=== PATIENT | female | born 1960 | race Caucasian/White ===

== ENCOUNTER 2022-06-05 12:09 | Outpatient (REF) | payer OTHER, SELFPAY ==
[2022-06-05 14:11] LABS: Syphilis Screen Nonreactive (Nonreactive)
[2022-06-08 14:01] LABS: Absolute CD3 Count 511 cells/uL (840-3060); Absolute CD4 Count 36 cells/uL (490-1740); Absolute CD8 Count 474 cells/uL (180-1170); Absolute Lymphocytes 601 cells/uL (850-3900); CD4 CD8 Ratio 0.08 (0.86-5.00); Percent CD3 Cells 85 % (57-85); Percent CD4 Cells 6 % (30-61); Percent CD8 Cells 79 % (12-42)
[2022-06-08 18:32] LABS: TS Negative Control Passed; TS Panel A 0; TS Panel B 1; TS Positive Control Passed; TSpotTB Negative (Negative)
[2022-06-09 20:03] LABS: HIV RNA PCR Qn Copies 1110000 copies/mL (NOT DETECTED); HIV RNA PCR Qn Log Copies 6.05 (NOT DETECTED)
[2022-06-15 19:07] LABS: HIV Genotype DETECTED
[2022-06-16 02:51] LABS: Date Viral Load Collected NG; Dolutegravir Resistance NOT PREDICTED; HIV-1 Bictegravir Resistance NOT PREDICTED; HIV-1 Cabotegravir Resistance NOT PREDICTED; HIV-1 Elvitegravir Resistance NOT PREDICTED; Raltegravir Resistance NOT PREDICTED; Value of Last HIV Viral Load NG copies/mL
== END 2022-06-05 12:10 | disposition home or self-care (01) ==
LOC: HO.LAB 12:09
PROVIDERS: PCP Internal Medicine; Visit Provider Internal Medicine
DX: B20 Human immunodeficiency virus [HIV] disease (principal)
CPT/HCPCS: 36415; 86359; 86360; 86481; 86780; 87536; 87900; 87901; 87906

== ENCOUNTER 2022-07-29 13:03 | Outpatient (REF) | payer OTHER, SELFPAY ==
[2022-07-29 13:55] LABS: MANUAL DIFF FLAG NO
[2022-07-29 14:46] LABS: Basophils Percent Auto 0.6 % (0-2); Eosinophils Absolute Auto 0.3 X10*3/uL (0.0-0.4); Eosinophils Percent Auto 8.6 % (0-4); Hematocrit 34.1 % (37.0-47.0); Hemoglobin 10.9 g/dl (12.0-16.0); Imm Gran Abs Auto 0.01 X10*3/uL (0.00-0.03); Imm Gran Pct Auto 0.3 % (0.0-0.4); Lymphocytes Absolute Auto 1.7 X10*3/uL (1.2-4.9); Lymphocytes Percent Auto 47.3 % (20-40); Mean Corpuscular Hemoglobin 30.2 pg (27.0-33.0); Mean Corpuscular Volume 94.5 fL (80.0-98.0); Mean Platelet Volume 10.9 fL (9.4-12.3); Monocytes Absolute Auto 0.4 X10*3/uL (0.1-1.2); Monocytes Percent Auto 10.3 % (2-11); Neutrophils Absolute Auto 1.2 x10*3/uL (2.0-8.3); Neutrophils Percent Auto 32.9 % (45-73); Platelet Count 133 X10*3/uL (160-400); Red Blood Count 3.61 X10*6/uL (4.20-5.50); White Blood Count 3.5 X10*3/uL (4.8-10.8)
[2022-07-29 15:18] LABS: Alanine Aminotransferase < 6 U/L (0-31); Albumin Level 3.5 g/dL (3.5-5.0); Alkaline Phosphatase 76 U/L (39-117); Anion Gap 11 (12-20); Aspartate Amino Transferase 16 U/L (5-31); Bilirubin Direct < 0.2 mg/dL (0.0-0.5); Bilirubin Total 0.2 mg/dL (0.0-1.0); Blood Urea Nitrogen 19 mg/dL (9-16); Calcium 8.7 mg/dL (8.4-10.2); Carbon Dioxide 28 mmol/L (22-29); Chloride 106 mmol/L (96-108); Estimated Glomerular Filt Rate > 60; Glucose Random 90 mg/dL (60-115); Potassium 3.8 mmol/L (3.3-5.1); Sodium 141 mmol/L (135-145); Total Protein 7.1 g/dL (6.5-8.0)
[2022-07-31 14:23] LABS: Absolute CD3 Count 1423 cells/uL (840-3060); Absolute CD4 Count 194 cells/uL (490-1740); Absolute CD8 Count 1234 cells/uL (180-1170); Absolute Lymphocytes 1649 cells/uL (850-3900); CD4 CD8 Ratio 0.16 (0.86-5.00); Percent CD3 Cells 86 % (57-85); Percent CD4 Cells 12 % (30-61); Percent CD8 Cells 75 % (12-42)
[2022-07-31 16:24] LABS: HIV RNA PCR Qn Copies 150 copies/mL (NOT DETECTED); HIV RNA PCR Qn Log Copies 2.18 (NOT DETECTED)
== END 2022-07-29 13:04 | disposition home or self-care (01) ==
LOC: HO.LAB 13:03
PROVIDERS: PCP Internal Medicine; Visit Provider Internal Medicine
DX: B20 Human immunodeficiency virus [HIV] disease (principal)
CPT/HCPCS: 36415; 80048; 80076; 85025; 86359; 86360; 87536

== ENCOUNTER 2022-08-12 10:17 | Outpatient (REF) | payer OTHER, SELFPAY ==
[2022-08-14 15:58] LABS: Absolute CD3 Count 1291 cells/uL (840-3060); Absolute CD4 Count 179 cells/uL (490-1740); Absolute CD8 Count 1117 cells/uL (180-1170); Absolute Lymphocytes 1479 cells/uL (850-3900); CD4 CD8 Ratio 0.16 (0.86-5.00); Percent CD3 Cells 87 % (57-85); Percent CD4 Cells 12 % (30-61); Percent CD8 Cells 76 % (12-42)
[2022-08-14 17:48] LABS: HIV RNA PCR Qn Copies 121 copies/mL (NOT DETECTED); HIV RNA PCR Qn Log Copies 2.08 (NOT DETECTED)
== END 2022-08-12 10:18 | disposition home or self-care (01) ==
LOC: HO.LAB 10:17
PROVIDERS: PCP Internal Medicine; Visit Provider Internal Medicine
DX: B20 Human immunodeficiency virus [HIV] disease (principal); R21 Rash and other nonspecific skin eruption
CPT/HCPCS: 36415; 86359; 86360; 87536

== ENCOUNTER 2023-01-21 09:47 | Outpatient (REF) | payer OTHER, SELFPAY | END 2023-01-21 09:48 | disposition home or self-care (01) | LOC: HO.LNP 09:47 | PROVIDERS: PCP Family Medicine; Visit Provider Obstetrics & Gynecology | DX: R87.612 Low grade squamous intraepithelial lesion on cytologic smear of cervix (LGSIL) (principal) | CPT/HCPCS: 57454; 88305; 88342; 88360 ==

== ENCOUNTER 2023-03-05 14:47 | Outpatient (REF) | payer OTHER, SELFPAY ==
--- NOTE | ~2023-03-05 | MM_ITS ---
EXAMINATION: BONE DENSITOMETRY CLINICAL INDICATION: Menopause. COMPARISON: This is the patient's baseline examination. TECHNIQUE: Using a [employer] DXA System (software version: 13.1) manufactured by [employer], dual-energy x-ray absorptiometry was performed of the lumbar spine and left hip. The images are of good technical quality. Summary results are attached. FINDINGS: LEFT FEMUR, NECK: BMD 0.742 g/cm2, Z-score -0.7, T-score -2.1, osteopenia. LEFT FEMUR, TOTAL: BMD 0.779 g/cm2, Z-score -0.7, T-score -1.8, osteopenia. AP SPINE L1-L3 (excluding L4): The data of L1-L4 has been changed to exclude the L4 vertebral body, because metallic artifact at this level may cause overestimation of lumbar spine density. BMD 0.860 g/cm2, Z-score -1.1, T-score -2.6, osteoporosis. IDENTIFIED RISK FACTORS: Menopause. HISTORY OF FRACTURE: None listed. MEDICATIONS: None listed. MM/XR DEXA axial skeleton IMPRESSION: 1. DIAGNOSIS: Osteoporosis based on the lowest T-score value of -2.6 in the lumbar spine applying World Health Organization criteria. 2. 10-YEAR FRACTURE RISK PREDICTION, FRAX: According to the guidelines, FRAX calculation should only be performed on patients in the osteopenia bone density category. Therefore, FRAX was not performed on this patient. 3. Treatment Recommendations: NOF guidelines recommend consideration for treatment in postmenopausal women and men age 50 and older presenting with the following: -A hip or vertebral (clinical or morphometric) fracture. -T-score less than or equal to -2.5 at the femoral neck or spine after appropriate evaluation to exclude secondary causes. -Low bone mass at the hip or spine and a 10-year fracture probability by FRAX of greater than or equal to 3% for hip fracture or greater than or equal to 20% for major osteoporotic fracture based on the [place] adapted WHO algorithm. 4. Other Recommendations: All treatment decisions require clinical judgment and consideration of individual patient factors, including patient preferences, comorbidities, previous drug use, risk factors not captured in the FRAX model (e.g. frailty, falls, vitamin D deficiency, increased bone turnover, interval significant decline in bone density) and possible under or overestimation of fracture risk by FRAX. Additional medical evaluation for secondary cause of low bone mineral density may be appropriate. FUTURE SCAN RECOMMENDATION: People with diagnosed cases of osteoporosis or at high risk for fracture should have regular bone mineral density tests. For patients eligible for Medicare, routine testing is allowed once every 2 years. The testing frequency can be increased to one year for patients who have rapidly progressing disease, those who are receiving or discontinuing medical therapy to restore bone mass, or have additional risk factors.
== END 2023-03-05 14:48 | disposition home or self-care (01) ==
LOC: HO.MAMMO 14:47
PROVIDERS: PCP Family Medicine; Visit Provider Advanced Practice Midwife
DX: M81.0 Age-related osteoporosis without current pathological fracture (principal); N95.9 Unspecified menopausal and perimenopausal disorder
CPT/HCPCS: 77080

== ENCOUNTER → 2023-03-05 15:00 | Outpatient (BNV) | payer OTHER, SELFPAY | PROVIDERS: PCP Family Medicine; Visit Provider Radiology Diagnostic Radiology | DX: D25.9 Leiomyoma of uterus, unspecified (principal); B20 Human immunodeficiency virus [HIV] disease | CPT/HCPCS: 77080 ==

== ENCOUNTER 2023-03-12 12:56 | Outpatient (REF) | payer OTHER, SELFPAY ==
--- NOTE | ~2023-03-12 | US_ITS ---
EXAMINATION: US PELVIS COMPLETE US PELVIS ENDOVAGINAL CLINICAL INFORMATION: Leiomyoma COMPARISON: None. TECHNIQUE: Transabdominal and transvaginal images of the pelvis were obtained. FINDINGS: UTERUS: Anteverted. Normal size and contour, measuring 9.9 x 5.1 x 6.5 cm (cervix to fundus x AP x transverse). Multiple uterine fibroids are demonstrated some of which are highly calcified the largest on the left side measuring up to 4.8 cm. Streak artifact from calcified uterine fibroids severely limits evaluation. Uniform, homogeneous endometrium measures 0.5 cm in width. RIGHT OVARY: Not well visualized secondary. No right adnexal masses or collections noted. LEFT OVARY: Not well visualized secondary. No left adnexal masses or collections noted. FREE FLUID: No pelvic free fluid. US/US pelvic and transvaginal IMPRESSION: 1. Multiple uterine fibroids are demonstrated some of which are highly calcified the largest on the left side measuring up to 4.8 cm. Streak artifact from calcified uterine fibroids severely limits evaluation. 2. Bilateral ovaries not well visualized, limiting evaluation. No adnexal masses or collections noted.
== END 2023-03-12 12:57 | disposition home or self-care (01) ==
LOC: HO.HMGCX 12:56
PROVIDERS: PCP Family Medicine; Visit Provider Advanced Practice Midwife
DX: D21.9 Benign neoplasm of connective and other soft tissue, unspecified (principal)
CPT/HCPCS: 76830; 76856

== ENCOUNTER 2023-03-22 11:16 | Outpatient (AMB) | payer OTHER, SELFPAY ==
--- NOTE | 2023-03-22 11:18 | A.OFFVIS_ITS ---
Intake Vital Signs 03/22/23 11:19 Height 5 ft 1 in Weight 134 lb BMI 25.3 BP 108/66 Intake Visit Reasons: colpo results Compression Molding Machine Tender Required: No Allergies sulfamethoxazole [From Bactrim] Allergy (Mild, Verified 03/22/23 11:24) Rash trimethoprim [From Bactrim] Allergy (Mild, Verified 03/22/23 11:24) Rash niacin [NIACIN] Allergy (Unknown, Verified 03/22/23 11:24) FLUSH Is last menstrual period known: No Post menopausal: Yes HPI HPI Comments History of Present Illness Details Presenting post colpo for follow-up. The patient is doing well with no complaints. The pathology showed the following: A. Endocervix, curettage: Squamous epithelium with inflammation and reactive changes and scant endocervical glandular epithelium; negative for dysplasia. B. Cervix, 3:00, biopsy: Squamous mucosa with a minute focus of atypia; no endocervical glandular component present (see comment). C. Cervix, 5:00, biopsy: Squamous and endocervical glandular mucosa with inflammation and reactive changes; negative for dysplasia. Comment: (B): The focal atypia, mainly present on the IHC slides, is insufficient for an unequivocal diagnosis of low grade dysplasia. There is no evidence of high grade dysplasia. No previous [facility] pap available for correlation. [facility] Medical History Cough HIV (human immunodeficiency virus infection) Rash Surgical History No pertinent past surgical history Family History Paternal Grandmother Liver cancer Maternal Grandfather Bone cancer Maternal Grandmother Breast cancer Maternal Aunt Breast cancer Social History Household Members: None Housing: Condominium Are you a primary home care nurse to a significant other at home: No Do you presently have visiting nurse or other home services: No Patient Tobacco Use Status: Never used Tobacco Second Hand Smoke Exposure: No service: No Current occupational status: employed Current occupation: works at [employer] ,two cats healthy Female Reproductive History Menstrual Date of last Bone Density Screenin03/05/23 Review of Systems Const All systems reviewed & are unremarkable except as noted in HPI and below Reports as per HPI and Reports no additional complaints GI Reports no additional complaints Reports no additional complaints Assessment & Plan Assessment & Plan (1) LGSIL on Pap smear of cervix: Comment: HIV positive Code(s): R87.612 - Low grade squamous intraepithelial lesion on cytologic smear of cervix (LGSIL) Plan: Discussed with the patient the pathology results of the colposcopy biopsies & endocervical curettage ( negative). Discussed with the patient the sensitivity specificity, positive and negative predictive value in detecting cervical cancer in addition discussed the regression, persistence and progression rates. Recommended co-testing in 12 months, if cytology and or HPV are abnormal will proceed was colposcopy biopsy and endocervical curettage, if HIV status becomes poorly controlled or lesions gets worse or stays persistent for 2 years will proceed with loop electric excision procedure. Instructions given to the patient to schedule a co test appointment in 1 year. All questions answered the patient verbalized understanding. Coding Level of Care Code Est Pt Level 3 (32857) Diagnoses LGSIL on Pap smear of cervix R87.612
[2023-03-22 11:19] VITALS: BP 108/66; BMI 25.3
== END 2023-03-22 11:54 | disposition home or self-care (01) ==
LOC: HO.HWS 11:16
PROVIDERS: PCP Family Medicine; Visit Provider Obstetrics & Gynecology
DX: R87.612 Low grade squamous intraepithelial lesion on cytologic smear of cervix (LGSIL) (principal)
CPT/HCPCS: 99213

== ENCOUNTER → 2023-03-22 11:16 | Outpatient (BNVA) | payer OTHER, SELFPAY | PROVIDERS: PCP Family Medicine; Visit Provider Obstetrics & Gynecology ==

== ENCOUNTER 2023-04-27 15:26 | Outpatient (REF) | payer OTHER, SELFPAY ==
[2023-04-27 17:59] LABS: MANUAL DIFF FLAG NO
[2023-04-27 18:05] LABS: Basophils Percent Auto 0.6 % (0-2); Eosinophils Absolute Auto 0.2 X10*3/uL (0.0-0.4); Eosinophils Percent Auto 6.1 % (0-4); Hematocrit 36.7 % (37.0-47.0); Hemoglobin 12.2 g/dl (12.0-16.0); Imm Gran Abs Auto 0.01 X10*3/uL (0.00-0.03); Imm Gran Pct Auto 0.3 % (0.0-0.4); Lymphocytes Absolute Auto 1.1 X10*3/uL (1.2-4.9); Lymphocytes Percent Auto 31.2 % (20-40); Mean Corpuscular HGB Conc 33.2 g/dl (31.0-35.0); Mean Corpuscular Volume 102.2 fL (80.0-98.0); Mean Platelet Volume 10.2 fL (9.4-12.3); Monocytes Absolute Auto 0.3 X10*3/uL (0.1-1.2); Monocytes Percent Auto 9.1 % (2-11); Neutrophils Absolute Auto 1.9 x10*3/uL (2.0-8.3); Neutrophils Percent Auto 52.7 % (45-73); Platelet Count 190 X10*3/uL (160-400); Red Blood Count 3.59 X10*6/uL (4.20-5.50); White Blood Count 3.6 X10*3/uL (4.8-10.8)
[2023-04-27 18:45] LABS: Alanine Aminotransferase < 5 U/L (0-31); Albumin Level 3.8 g/dL (3.5-5.0); Alkaline Phosphatase 83 U/L (39-117); Anion Gap 12 (12-20); Aspartate Amino Transferase 16 U/L (5-31); Bilirubin Total 0.3 mg/dL (0.0-1.0); Blood Urea Nitrogen 17 mg/dL (9-16); Calcium 8.9 mg/dL (8.4-10.2); Carbon Dioxide 28 mmol/L (22-29); Chloride 105 mmol/L (96-108); Estimated Glomerular Filt Rate > 60; Glucose Random 93 mg/dL (60-115); Sodium 141 mmol/L (135-145)
[2023-04-29 10:42] LABS: Absolute CD3 Count 837 cells/uL (840-3060); Absolute CD4 Count 170 cells/uL (490-1740); Absolute CD8 Count 667 cells/uL (180-1170); Absolute Lymphocytes 1159 cells/uL (850-3900); CD4 CD8 Ratio 0.26 (0.86-5.00); Percent CD3 Cells 72 % (57-85); Percent CD4 Cells 15 % (30-61); Percent CD8 Cells 58 % (12-42)
[2023-05-01 10:29] LABS: HIV RNA PCR Qn Copies <20 DETECTED copies/mL (NOT DETECTED); HIV RNA PCR Qn Log Copies <1.30 DETECTED (NOT DETECTED)
== END 2023-04-27 15:27 | disposition home or self-care (01) ==
LOC: HO.CHCLDS 15:26
PROVIDERS: Visit Provider Internal Medicine
DX: B20 Human immunodeficiency virus [HIV] disease (principal)
CPT/HCPCS: 36415; 80053; 85025; 86359; 86360; 87536

== ENCOUNTER 2023-07-09 10:54 | Outpatient (REF) | payer OTHER, SELFPAY ==
[2023-07-09 15:52] LABS: Influenza A PCR NEGATIVE (Negative); Influenza B PCR NEGATIVE (Negative); Resp Syncy Virus RNA Qual PCR POSITIVE (Negative); SARS COV2 PCR INHOUSE NEGATIVE (Negative)
== END 2023-07-09 10:55 | disposition home or self-care (01) ==
LOC: HO.CHCLNP 10:54
PROVIDERS: Visit Provider Pediatrics
DX: Z11.52 Encounter for screening for COVID-19 (principal); J01.00 Acute maxillary sinusitis, unspecified; Z20.822 Contact with and (suspected) exposure to COVID-19
CPT/HCPCS: 0241U

== ENCOUNTER 2024-06-07 15:58 | Outpatient (AMB) | payer OTHER, SELFPAY ==
--- NOTE | 2024-06-07 16:02 | A.OFFVIS_ITS ---
Vital Signs 06/07/24 16:03 Height 5 ft 1 in Weight 123 lb 14.397 oz BMI 23.4 BP 122/89 Blood Pressure Location Lt brachial Position Sitting Pulse 85 Intake Visit Reasons: [place] consult Intake Note: Patient in office today for colonoscopy screening. CC: Last colonoscopy done about 5 years ago per patient at [facility]. Denies having any GI concerns or symptoms today. Crime Laboratory Analyst Required: No Allergies sulfamethoxazole [From Bactrim] Allergy (Mild, Verified 06/07/24 16:07) Rash trimethoprim [From Bactrim] Allergy (Mild, Verified 06/07/24 16:07) Rash niacin [NIACIN] Allergy (Unknown, Verified 06/07/24 16:07) FLUSH HPI HPI [place] consult: Details: 64-year-old female here for preprocedural meeting to discuss a screening colonoscopy. She is referred by [facility]. P.m. X Aids /HIV Pancytopenia * SURGICAL HISTORY None Colonoscopy x 2 Marge= TA * ALLERGIES Sulfa Niacin * [place] [employer]ANCIER[employer] LABS: None since last summer TODAY'S VISIT She had a prior scope x2 at [place] with polyps. She denies any bowel or upper GI problems. There are no prior problems with anesthesia or sedation She has HIV and is on retroviral therapy - [place]k. She denies any cardiac or respiratory problems Both parents had colon polyps. [facility] Medical History (Updated 06/07/24 @ 16:09 by JAMIE Bhat) Cough Rash HIV (human immunodeficiency virus infection) Surgical History No pertinent past surgical history Family History Paternal Grandmother Liver cancer Maternal Grandfather Bone cancer Maternal Grandmother Breast cancer Maternal Aunt Breast cancer Social History Household Members: None Housing: Condominium Are you a primary progressive care manager to a significant other at home: No Do you presently have visiting nurse or other home services: No Patient Tobacco Use Status: Never used Tobacco Second Hand Smoke Exposure: No service: No Current occupational status: employed Current occupation: works at [employer] Review of Systems Const Denies fatigue, Denies fever(s), Denies night sweats, Denies poor appetite and Denies weight loss ENT Reports Normal hearing present, Denies dental pain, Denies dysphagia, Denies hearing loss, Denies mouth pain, Denies odynophagia, Denies throat swelling, Denies tongue swelling and Reports other (Dentition adequate) Card Reports no additional complaints Resp Reports no additional complaints GI Details: Denies abdominal pain, Denies melena, Denies bloating, Denies hematochezia, Denies constipation, Denies GI cramping, Denies dysphagia, Denies excessive flatus, Denies early satiety, Denies heartburn, Denies diarrhea, Denies nausea, Denies odynophagia, Denies vomiting and Denies hematemesis Skin/Breast Denies pruritus, Denies lesions, Denies rash and Denies jaundice Neuro Reports Normal hearing present and Denies Abnormal speech present Endo Denies fatigue Aller/Immun Denies throat swelling and Denies tongue swelling Physical Exam Vital Signs: Last Vital Signs Pulse 85 06/07/24 16:03 BP 122/89 06/07/24 16:03 BMI result Body Mass Index 23.4 Const General: cooperative, no acute distress, well developed and well groomed Nutritional Appearance: average body habitus and well nourished Orientation/consciousness: oriented to person, oriented to place and oriented to time Limitations: No language barrier HEENT Head: Yes normocephalic and Yes atraumatic Eyes General: appearance normal, both eyes and all related structures Pupils: Equal, round and reactive pupils present Neck Neck: Yes normal visual inspection and Yes no lymphadenopathy Thyroid: Thyroid normal Resp Effort & Inspection: normal respiratory effort and able to speak in complete sentences Auscultation: clear to auscultation bilaterally Cardio Rate: regular rate Rhythm: regular rhythm Heart sounds: Normal, physiologic split S2 sound present Peripheral pulses: radial pulses present and posterior tibial pulses present GI Inspection: No distended and No Abdominal panniculus present Palpation (GI): Soft to palpation, nontender, no guarding, not rigid and No hepatosplenomegaly present Percussion: Yes normal to percussion Auscultation: normal bowel sounds Rectal Exam - Female: deferred Skin General skin exam: no rashes or lesions noted, turgor normal, skin not dry, no jaundice, No spider nevi and no striae Rashes: no rashes Nails: normal Neuro General: oriented to person, oriented to place and oriented to time Cranial nerves: Yes Equal, round and reactive pupils present and Yes Normal hearing present Speech: No Abnormal speech present Extrem General: Yes normal to inspection, No clubbing, No cyanosis and No edema Psych Appearance: grossly normal and well kempt Mental Status: mental status grossly normal Speech and movement: Normal speech and movement present Affect: normal affect Attitude: cooperative Thought process: Normal thought process present and not confabulating Thought content: Normal thought content present Insight: Good insight present (Psych) Judgement: Good judgement present (Psych) Assessment & Plan Assessment & Plan (1) Pre-op examination: Code(s): Z01.818 - Encounter for other preprocedural examination Category: Medical (2) HIV (human immunodeficiency virus infection): Comment: She has great improvement in CD4 count and viral load but still not undetectable (was over a million viral copies to begin with Code(s): B20 - Human immunodeficiency virus [HIV] disease Category: Medical Plan She had a prior scope x2 at [place] with polyps. She denies any bowel or upper GI problems. There are no prior problems with anesthesia or sedation She has HIV and is on retroviral therapy - [place]. She denies any cardiac or respiratory problems Both parents had colon polyps Orders: Orders Complete Blood Count Auto Diff 06/07/24 Z01.818 - Encounter for other preprocedural examination Comprehensive Met. Panel 06/07/24 Z01.818 - Encounter for other preprocedural examination Colonoscopy - GI Use Only 06/07/24 Z01.818 - Encounter for other preprocedural examination Medications: New bisacodyl (Dulcolax (bisacodyl)) 10 mg (2 x 5 mg) PO BEDTIME 4 tabs 0RF 2 days peg 3350-electrolytes 236-22.74-6.74 -5.86 gram (Golytely) until fecal effluent is clear; do not exceed a total volume of 2,000 mL 240 mL PO Q10M 4,000 mL 0RF 1 day Z12.11 - Encounter for screening for malignant neoplasm of colon Coding Level of Care Code New Pt Level 3 (96216) Diagnoses Pre-op examination Z01.818 HIV (human immunodeficiency virus infection) B20
[2024-06-07 16:03] VITALS: BP 122/89; PULSE 85; BMI 23.4
== END 2024-06-07 16:27 | disposition home or self-care (01) ==
LOC: HO.HGI 15:59
PROVIDERS: PCP Family Medicine; Visit Provider Nurse Practitioner
DX: Z01.818 Encounter for other preprocedural examination (principal); Z12.11 Encounter for screening for malignant neoplasm of colon; B20 Human immunodeficiency virus [HIV] disease
CPT/HCPCS: S0285

== ENCOUNTER → 2024-06-07 15:58 | Outpatient (BNVA) | payer OTHER, SELFPAY | PROVIDERS: PCP Family Medicine; Visit Provider Nurse Practitioner ==

== ENCOUNTER 2024-06-13 14:18 | Outpatient (REF) | payer OTHER, SELFPAY ==
[2024-06-14 12:08] LABS: HPV 16,18/45 See PAP report
[2024-06-22 00:14] LABS: HPV MRNA E6/E7 Rectal DETECTED
[2024-06-23 11:17] LABS: HPV 16 RNA, Rectal NOT DETECTED; HPV 18/45 RNA Rectal NOT DETECTED
== END 2024-06-13 14:19 | disposition home or self-care (01) ==
LOC: HO.HHCLNP 14:18
PROVIDERS: Visit Provider Family Medicine
DX: Z08 Encounter for follow-up examination after completed treatment for malignant neoplasm (principal); Z85.048 Personal history of other malignant neoplasm of rectum, rectosigmoid junction, and anus; Z12.4 Encounter for screening for malignant neoplasm of cervix; R87.810 Cervical high risk human papillomavirus (HPV) DNA test positive
CPT/HCPCS: 36415; 87624; 87625; 88112; 88175

== ENCOUNTER 2024-11-30 17:16 | Emergency (ER) | payer OTHER, SELFPAY ==
--- NOTE | ~2024-11-30 | XR_ITS ---
CLINICAL HISTORY: pain, s p fall 3 view left hand Comparison: None Findings: No acute fracture of the hand. Minimally displaced distal radial fracture and fracture of the ulnar styloid process. No dislocation. Degenerative changes especially at the 2nd through 4th distal interphalangeal joints. No erosions. No radiopaque foreign body. IMPRESSION: 1. No acute fracture or dislocation in the hand. 2. Distal radial and ulnar styloid process fractures with no dislocation. This document has been electronically signed by: Ann Montano MD on 11/30/2024 18:41:37
--- NOTE | ~2024-11-30 | XR_ITS ---
CLINICAL HISTORY: pain, s p fall 4 view left wrist Comparison: None Findings: Acute mildly displaced distal radial fracture with no intra-articular involvement. Minimally displaced fracture of the ulnar styloid process. No dislocation. No significant degenerative changes in the wrist. No radiopaque foreign body. Soft tissue swelling. IMPRESSION: 1. Mildly displaced distal radial fracture and ulnar styloid process fracture with no dislocation. This document has been electronically signed by: Ann Montano MD on 11/30/2024 18:43:15
[2024-11-30 17:36] VITALS: BP 134/86; PULSE 88; RESP 16; TEMP 36.1; O2SAT 100; BMI 27.7
[2024-11-30] MEDS: oxyCODONE HCl Immed Release 5 MG TABLET PO (18:23)
--- NOTE | 2024-11-30 18:54 | ED.EXTPRO ---
HPI - Extremity Problem General Chief complaint: Extremity Injury, Upper Stated complaint: left wrist pain, broken? from fall Time Seen by Provider: 11/30/24 17:48 Source: patient Mode of arrival: ambulatory Limitations: no limitations History of Present Illness ED Provider: Joselyn Hayes NP HPI Narrative: Patient is a 64-year-old female who presents emergency department for evaluation after mechanical fall at approximately 15:45 this afternoon. She tripped on some gravel in a parking lot resulting in a fall onto the left outstretched hand with obvious deformity and localized pain. She denies any head strike or loss of consciousness associated with this fall. No additional post fall pain/concerns. Denies any prior injury to this wrist/hand. Denies numbness tingling or cold sensation. Reports last tetanus vaccination <5 years. Related Data Home Medications ?Medication ?Instructions ?Recorded ?Confirmed trazodone 100 mg tablet 2.5 tab PO BEDTIME PRN insomnia 04/28/22 05/28/22 clonazepam 0.5 mg tablet 1 tab PO DAILY PRN anxiety 05/28/22 05/28/22 alendronate 70 mg tablet 70 mg PO QWEEK 06/07/24 calcium carbonate 600 mg PO BID 06/07/24 cholecalciferol (vitamin D3) 25 25 mcg PO DAILY 06/07/24 mcg (1,000 unit) tablet Previous Rx's ?Medication ?Instructions ?Recorded dolutegravir 50 mg-lamivudine 300 1 tab PO DAILY 30 days #30 tabs 06/10/22 mg tablet (Dovato) bisacodyl 5 mg tablet,delayed 10 mg (2 x 5 mg) PO BEDTIME 2 days 06/07/24 release (Dulcolax (bisacodyl)) #4 tabs peg 3350-electrolytes 236 240 ml PO Q10M 1 day #4,000 mL 06/07/24 gram-22.74 gram-6.74 gram-5.86 gram solution (Golytely) Allergies Allergy/AdvReac Type Severity Reaction Status Date / Time sulfamethoxazole Allergy Mild Rash Verified 11/30/24 17:40 [From Bactrim] trimethoprim [From Bactrim] Allergy Mild Rash Verified 11/30/24 17:40 niacin [NIACIN] Allergy Unknown FLUSH Verified 11/30/24 17:40 Review of Systems Review of Systems: Yes all other systems are reviewed and are negative [facility] Past Medical History Attestation statement: The following information was validated with the patient. Source: old records reviewed Medical History Cough Rash HIV (human immunodeficiency virus infection) Surgical History No pertinent past surgical history Family History Family History Paternal Grandmother Liver cancer Maternal Grandfather Bone cancer Maternal Grandmother Breast cancer Maternal Aunt Breast cancer Social History Social History Household Members: None Housing: Condominium Are you a primary customer care voice consultant to a significant other at home: No Do you presently have visiting nurse or other home services: No Patient Tobacco Use Status: Never used Tobacco Second Hand Smoke Exposure: No Advance Directives: No Advance Directives Information Provided: Yes service: No Current occupational status: employed Current occupation: works at [employer] healthy Physical Exam Vital Signs: Vital Signs: Last Vital Signs Temp 96.9 F 11/30/24 17:36 Pulse 88 11/30/24 17:36 Resp 16 11/30/24 17:36 BP 134/86 11/30/24 17:36 Pulse Ox 100 11/30/24 17:36 O2 Del Method Room Air 11/30/24 17:36 BMI result Body Mass Index 27.7 Appearance: Alert.?Oriented to person, place and time. No acute distress.?Normal affect. Head: Normocephalic, atraumatic Eyes: Pupils equal, round and reactive to light.? ENT: Pharynx normal.?? Neck: Normal inspection.? Neck supple.?? CVS: Heart sounds normal. Normal heart rate and rhythm.? Pulses normal.?? Respiratory: No respiratory distress.? Lung sounds clear to auscultation bilaterally?? Skin: Skin warm and dry.? Normal skin color.? ? Extremities: Positive deformity to the left radial wrist, 2+ radial pulse. Neuro: Moves all extremities spontaneously. Sensation intact bilaterally. CN II-XII intact. No focal neuro deficits. Ambulates with normal steady gait. Medications Administered Discontinued Medications Generic Name Dose Route Start Last Admin Trade Name Jacque PRN Reason Stop Dose Admin Oxycodone HCl 5 mg 11/30/24 18:09 11/30/24 18:23 Oxycodone Hcl Immed Release 5 Mg Tablet PO 11/30/24 18:10 5 mg ONCE ONE Administration Medical Decision Making Medical Decision Making [facility] Narrative: Patient is a 64-year-old female who presents emergency department for evaluation of traumatic left wrist pain s/p mechanical fall as per HPI. No focal neurological deficits, no head strike or LOC that would warrant emergent head CT imaging. XR of the left wrist was obtained and is consistent with a distal radius and ulnar styloid fracture. The extremities neurovascularly intact distally. A sugar-tong splint was placed in the extremity remained neurovascularly early after application. She was treated with oxycodone in the emergency department. We discussed conservative treatment, outpatient follow-up with Orthopedics, worrisome signs and symptoms that would warrant re-evaluation in the emergency department. A short prescription for oxycodone was sent to her pharmacy in educated on precautions with usage. All questions answered. Stable for discharge Differential Diagnosis Differential Diagnoses: The differential diagnosis associated with the presentation includes (Fracture, dislocation, sprain) Independent Interpretation I performed an independent interpretation of an: Plain X-Ray (See narrative above) Radiology Impression Discussion of test interpretation with radiology: I have reviewed the radiologist's reading. Radiologist Impression: 4 view left wrist Comparison: None Findings: Acute mildly displaced distal radial fracture with no intra-articular involvement. Minimally displaced fracture of the ulnar styloid process. No dislocation. No significant degenerative changes in the wrist. No radiopaque foreign body. Soft tissue swelling. IMPRESSION: 1. Mildly displaced distal radial fracture and ulnar styloid process fracture with no dislocation. IMPRESSION: 1. No acute fracture or dislocation in the hand. External Record Review External record reviewed: Office record and Other I attest that I have reviewed patients [employer], and at the time prescribing the patient a controlled substance is appropriate based off of patients diagnosis and treatment plan. Prescription Management I considered prescription management with: Pain Medication Procedures Orthopedic Splinting/Casting Injury #1: Side: left Upper Extremity Injury Location: wrist Upper Extremity Immobilizer: sugar tong splint Discharge Plan Discharge Clinical Impression: Distal radius fracture, left, Fracture of ulnar styloid Patient Disposition: Home, Self-Care Instructions: Wrist Fracture in Adults (ED), R.I.C.E. Treatment (ED) Additional Instructions: You can take ibuprofen 200 mg, 3 tablets (600mg) every 6-8 hours as needed for pain, in addition to Tylenol 500 mg, 2 tablets (1,000mg) every 4-6 hours as needed for pain, but not to exceed 3 doses daily (3,000mg).? For severe Pain that is unrelieved by either of the above I have sent a short prescription for oxycodone to your pharmacy. This is a narcotic medication in a cam be addicting. It may make you drowsy. You should not drive, drink alcohol, or work while taking this medication. Be sure to apply ice for 10-15 minutes 4-6 times daily. The splint must remain in place at all times it can not get wet. If you feel that the splint feels too tight refill as though there is swelling or pressure beneath the splint, numbness or tingling to the fingers or discoloration to the fingers you should seek re-evaluation. As discussed, you will need to contact the orthopedic office first thing tomorrow morning to arrange for a follow-up visit. Prescriptions: No Action trazodone 100 mg tablet 2.5 tab PO BEDTIME PRN (Reason: insomnia) clonazepam 0.5 mg tablet 1 tab PO DAILY PRN (Reason: anxiety) Dovato 50-300 mg tablet 1 tab PO DAILY 30 Days Qty: 30 5RF cholecalciferol (vitamin D3) 25 mcg (1,000 unit) tablet 25 mcg PO DAILY peg 3350-electrolytes [Golytely] 236-22.74-6.74 -5.86 gram recon soln 240 ml PO Q10M 1 Days Qty: 4000 0RF Rx Instructions: until fecal effluent is clear; do not exceed a total volume of 2,000 mL calcium carbonate 600 mg calcium (1,500 mg) tablet 600 mg PO BID alendronate 70 mg tablet 70 mg PO QWEEK bisacodyl [Dulcolax (bisacodyl)] 5 mg tablet,delayed release (DR/EC) 10 mg PO BEDTIME 2 Days Qty: 4 0RF Referrals: [facility] [Provider Group] Nikki Lopez MD [Primary Care Provider] - Print Language: Ukrainian
--- OUTSIDE RECORDS SUMMARY | 2024-11-30 19:06 | XMS_ITS | Clinical Summary ---
Author Organization [facility] it Address [address] [place] [address] Care Team Providers Care Manager Fixed Income Name Role Phone Antonia Vela MD Primary Care Provider [phone] Allergies No known active allergies Medications traZODone (DESYREL) 100 mg tablet Take 2.5 Tablets by mouth at bedtime as needed for Sleep. 05/13/2022 Active clonazePAM (KlonoPIN) 0.5 mg tablet Take 1 tablet (0.5 mg total) by mouth 1 (one) time each day if needed for anxiety. Max Daily Amount: 0.5 mg 06/26/2021 Active gabapentin (NEURONTIN) 300 mg capsule Take 1 capsule (300 mg total) by mouth at bedtime. 08/08/2020 Active loratadine (CLARITIN) 10 mg tablet Take 10 mg by mouth daily. Active Active Problems Problem Noted Date Diagnosed Date Pancytopenia (CMS/HCC V24, CMS/HCC V28) 02/06/20 22 Adjustment disorder with mixed anxiety and depre ssed mood 07/18/2020 Dysthymia 05/29/2015 Tear of meniscus of knee 10/25/2013 Overview (07/27/2024): Meniscus tear and extrusion 10/20 Benign neoplasm of colon 05/13/2012 Overview (07/27/2024): CN 05/13/2012, 8 mm sigmoid colon polyp: Tubulovillous adenoma. Next CN in 3 yrs. Cervical high risk human pap illomavirus (HPV) DNA test positive 01/07/2010 Overview (07/27/2024): Colpo performed 01/16. ECC - normal, repeat pap 4 months. Colpo repeated 12/17 for REJI 1 - Hypercholesteremia 03/06/2009 Fibroid uterus 11/30/2007 Obesity 10/29/2006 Hypertension 10/26/2006 Known medical problems 08/03/2005 Overview (07/27/2024): DERMATOFIBROMAS Immunizations Name Administration Dates Next Due Influenza trivalent, with preservative (Fluzone; Afluria) 6mo and older 05/10/2020,05/10/2012,05/09/2010,2006 Influenza, Unspecified 05/08/2013 Td Tetanus diptheria (Tdvax) 7yo and older 05/09/2006 Tdap Tetanus diptheria acell ular pertussis (Boostrix; Adacel) 7yo and older 05/18/2012 Surgical History Surgery Date Site/Laterality Comments OTHER SURGICAL HISTORY 12/2012 PROCEDURE: MAMMOGRAM COLONOSCOPY 05/13/2012 PROCEDURE: HISTORICAL COLONOSCOPY; COMMENT: 8 mm sigmoid colon polyp: Tubulovillous adenoma. COLONOSCOPY 02/15/2018 PROCEDURE: HISTORICAL COLONOSCOPY; COMMENT: no polyps Medical History Medical History Date Comments Obesity complicating pregnan cy, childbirth, or the puerperium, unspecified as to episode of care or not applicable(649.10) 10/29/2006 DX:Obesity complicating preg bebeto, childbirth, or the puerperium, unspecified as to episode of care or not applicable(649.10) Nevus, non-neoplastic 03/31/2007 DX:Nevus, non-neoplastic Fibroid uterus 11/30/2007 DX:Fibroid uteru s Hypercholesteremia 03/06/2009 DX:Hyperchole steremia Essential hypertension, benign 10/26/2006 D X:Essential hypertension, benign Other specified personal his tory presenting hazards to health(V15.89) DX:Other specifie d personal history presenting hazards to health(V15.89) Benign neoplasm of colon 05/13/2012 DX:[place] neoplasm of colon Meniscus tear 10/25/2013 DX:Meniscus tear ; COMMENT: Meniscus tear and extrusion 10/20 Family History Medical History Relation Name Comments Breast cancer Aunt m. aunt maternal Hypertension Father colon polyps 60 s Other: bone cancer Maternal Grandfather p rostate cancer Breast cancer Maternal Grandmother skin c ancer, heart issues Hypertension Mother colon polyps 60 s Diabetes Paternal Grandmother liver c ancer Colon cancer Neg Hx Ovarian cancer Neg Hx Pancreatic cancer Neg Hx Uterine cancer Neg Hx Relation Name Status Comments Aunt deborah. aunt Alive Father Alive Maternal Grandfather Maternal Grandmother Mother Alive Paternal Grandfather Paternal Grandmother Social History Tobacco Use Types Packs/Day Years Used Date Smoking Tobacco: Never Smokeless Tobacco: Never Alcohol Use Standard Drinks/Week Comments Yes 0 (1 standard drink = 0.6 oz pur e alcohol) Comments Unknown Sex and Gender Information Value Date Recorded Sex Assigned at Not on file Legal Sex Female 3:07 PM EST Gender Identity Not on file Sexual Orientation Not on file Obstetrics History Last Filed Vital Signs Vital Sign Reading Time Taken Comments Blood Pressure 110/70 01/28/2022 10:44 AM EDT Pulse 106 01/28/2022 10:44 AM EDT Temperature - - Respiratory Rate - - Oxygen Saturation - - Inhaled Oxygen Concentration - - Weight 50.8 kg (112 lb) 01/28/2022 10:44 AM EDT Height 152.4 cm (5') 01/28/2022 10:44 AM EDT Body Mass Index 21.87 01/28/2022 10:44 AM EDT Plan of Treatment Health Maintenance Due Date Last Done Comments Pneumococcal Vaccine: 50+ Years (1 of 1 - PCV) 2011 Zoster Vaccines (1 of 2) 2011 Breast Cancer Screening 01/20/2021 01/21/20 19, 01/14/2018, 01/08/2017 DTaP,Tdap,and Td Vaccines (3 - Td or Tdap) 05/18/2022 05/18/2012, 05/09/2006 Depression Screening 07/08/2022 HIV Screening 07/08/2022 Social Influencers of Health Screening 07/08/2022 Colorectal Cancer Screening: Colonoscopy 02/15/2023 02/15/2018 Hypertension/CHF/CAD Annual BMP Blood Test 02/18/2023 02/18/2022 COVID-19 Vaccine ( season) 2024 12/18/2020, 11/27/2020 Influenza Vaccine (Season Ended) 2025 05/10/2020, 05/08/2013, 05/10/2012, Additional history exists Cholesterol Screening (Lipid Panel) 10/22/2025 10/22/2020 Cervical Cancer Screening: HPV 01/09/2026 01/09/2021 RSV Immunization Adult Patients (1 - 1-dose 75+ series) 2036 Hepatitis C Screening Completed 05/26/2013 HIB Vaccines Aged Out No longer eligi ble based on patient's age to complete this topic HPV Vaccines Aged Out No longer eligi ble based on patient's age to complete this topic Hepatitis A Vaccines Aged Out No long er eligible based on patient's age to complete this topic Hepatitis B Vaccines Aged Out No long er eligible based on patient's age to complete this topic IPV Vaccines Aged Out No longer eligi ble based on patient's age to complete this topic MMR Vaccines Aged Out No longer eligi ble based on patient's age to complete this topic Meningococcal ACWY Vaccine Aged Out N o longer eligible based on patient's age to complete this topic Meningococcal B Vaccine Aged Out No l onger eligible based on patient's age to complete this topic Pneumococcal Vaccine: Pediatrics (0 to 5 Years) and At-Risk Patients (6 to 64 Years) Aged Out No longer eligible based on patient's age to complete this topic RSV Immunization Patients Under 20 months Aged Out No longer eligible based on patient's age to complete this topic Varicella Vaccines Aged Out No longer eligible based on patient's age to complete this topic Procedures Procedure Name Priority Date/Time Associated Diagnosis Comments ANNUAL BMP BLOOD TEST Routine 02/18/2022 HPV Routine 01/09/2021 LIPID PANEL Routine 10/22/2020 [facility] MAMMO BI INCL CAD Routine 01/20/2019 4:15 PM EDT Encounter for screening mammogram for malignant neoplasm of breast COLONOSCOPY Routine 02/15/2018 HEPATITIS C SCREENING Routine 05/26/2013 from Last 3 Months or Most Recently Relevant to Health Maintenance Results * Annual BMP Blood Test (02/18/2022) Pathologist [facility] Annual BMP Blood Test abstracted [facility] Provider [facility] Final Result * Cervical Cancer Screening: HPV (01/09/2021) Pathologist [facility] Cervical Cancer Screening: HPV abstracted, negative [facility] Provider [facility] Final Result * Lipid panel (10/22/2020) [facility] LDL/HDL Ratio 0 Comment:abstracted, no inter pretation Triglycerides 0 mg/dL Comment:abstracted, no inter pretation Cholesterol 0 mg/dL Comment:abstracted, no inter pretation HDL 0 mg/dL Comment:abstracted, no inter pretation LDL Cholesterol 0 mg/dL Comment:abstracted, no inter pretation Blood Venous blood specimen / Unknown Result [facility] Provider LAB BLOOD ORDERABLES Karely l Result * SCR MAMMO BI INCL CAD (01/20/2019 4:15 PM EDT) Anatomical Region Laterality Modality Radiographic Nyasia ging 01/14/2018 4:10 PM EDT Narrative 01/23/2019 10:49 AM EDT This is a summary report. The complete report is available in the patient's medical record. If you cannot access the medical record, please contact the sending organization for a detailed fax or copy. Full field digital screening mammography, reviewed with CAD and compared to previous. ??The breasts are composed of fatty and fibroglandular tissue. ??No architectural distortion or suspicious calcifications are identified. There is new bilateral axillary lymphadenopathy. IMPRESSION: : New bilateral axillary lymphadenopathy. Clinical correlation suggested. Bilateral axillary ultrasound suggested. Patient will be contacted by the radiology department to arrange for the additional imaging. BIRADS 0-incomplete 5 year breast cancer risk assessment 1.4 % Lifetime breast cancer risk assessment 8.7 % Breast cancer risk category Low (<15%) Procedure Note Felecia Singh - 07/28/2022 This is a summary report. The complete report is available in thepatient's medical record. If you cannot access the medical record, pleasecontact the sending organization for a detailed fax or copy. Full field digital screening mammography, reviewed with CAD and comparedto previous. The breasts are composed of fatty and fibroglandular tissue.No architectural distortion or suspicious calcifications areidentified. There is new bilateral axillary lymphadenopathy. IMPRESSION: : New bilateral axillary lymphadenopathy. Clinical correlation suggested.Bilateral axillary ultrasound suggested. Patient will be contacted by theradiology department to arrange for the additional imaging. BIRADS 0-incomplete 5 year breast cancer risk assessment 1.4 % Lifetime breast cancer risk assessment 8.7 % Breast cancer risk category Low (<15%) Antonia Vela MD IMG XR PROCEDURES Final Result * Colonoscopy (02/15/2018) [facility] Colonoscopy abstracted, no interpretation Anatomical Region Laterality Modality Other Historical Provider HEALTH MAINTENANCE Final Result * Hepatitis C Screening (05/26/2013) [facility] Hepatitis C Screening abstracted Historical Provider HEALTH MAINTENANCE Final Result from Last 3 Months or Most Recently Relevant to Health Maintenance Care Teams Manager Fixed Income Relationship Specialty Start Date End Date Antonia Vela MD [address] [place] [address] PCP - General 12/06/01
[2024-11-30 21:16] VITALS: BP 134/86; PULSE 88; RESP 16; TEMP 36.1; O2SAT 100
== END 2024-11-30 21:17 | disposition home or self-care (01) ==
PROVIDERS: Emergency Provider Emergency Medicine Emergency Medical Services; PCP Family Medicine
DX: S52.572A Other intraarticular fracture of lower end of left radius, initial encounter for closed fracture (principal); S52.612A Displaced fracture of left ulna styloid process, initial encounter for closed fracture; W01.0XXA Fall on same level from slipping, tripping and stumbling without subsequent striking against object, initial encounter; M25.532 Pain in left wrist; Y93.89 Activity, other specified; Y92.481 Parking lot as the place of occurrence of the external cause; Y99.9 Unspecified external cause status
CPT/HCPCS: 29125; 73110; 73130; 99283

== ENCOUNTER → 2024-11-30 17:45 | Outpatient (BNV) | payer OTHER, SELFPAY | PROVIDERS: Emergency Provider Emergency Medicine Emergency Medical Services; PCP Family Medicine; Visit Provider Specialist | DX: S52.612A Displaced fracture of left ulna styloid process, initial encounter for closed fracture (principal); S52.512A Displaced fracture of left radial styloid process, initial encounter for closed fracture; M25.532 Pain in left wrist | CPT/HCPCS: 73110; 73130 ==

== ENCOUNTER 2024-12-05 10:10 | Outpatient (AMB) | payer OTHER, SELFPAY ==
[2024-12-05 10:22] VITALS: BMI 27.5
--- NOTE | 2024-12-05 10:22 | MHC.OFFVIS ---
Vital Signs 12/05/24 10:22 Height 5 ft Weight 141 lb BMI 27.5 Intake Visit Reasons: FC-Lt wrist displaced distal fx Intake Note: Myra 64 yr old right hand dominant female presents today for a fracture care visit s/p [facility] ED visit. She tripped on some gravel in a parking lot resulting in a fall onto the left outstretched hand with obvious deformity and localized pain on 11/30/24 at a parking lot. Xrays were done and a fracture was confirm. Patient was splinted, given a sling and referred to orthopedic. Currently states she has pain, soreness on her thumb, and swelling. Allergies sulfamethoxazole [From Bactrim] Allergy (Mild, Verified 12/05/24 10:28) Rash trimethoprim [From Bactrim] Allergy (Mild, Verified 12/05/24 10:28) Rash niacin [NIACIN] Allergy (Unknown, Verified 12/05/24 10:28) FLUSH HPI HPI FC-Lt wrist displaced distal fx: Details: Myra is a 64 year old right hand dominant woman who presents for left distal radius & ulnar styloid fractures, S/P fall, DOI: 11/30/24. She was seen in the ED and fitted for a Sugar-tong splint. She complains of pain in her wrist, as well as soreness in her thumb. She also complains of swelling. She complains that her [ ] finger is locking on her at times. She would like to discuss this when her wrist has recovered. She has HIV. 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 [facility] Medical History Cough Rash HIV (human immunodeficiency virus infection) Surgical History No pertinent past surgical history Family History Paternal Grandmother Liver cancer Maternal Grandfather Bone cancer Maternal Grandmother Breast cancer Maternal Aunt Breast cancer Social History Household Members: None Housing: Condominium Are you a primary healthcare corporate account director to a significant other at home: No Do you presently have visiting nurse or other home services: No Patient Tobacco Use Status: Never used Tobacco Second Hand Smoke Exposure: No service: No Current occupational status: employed Current occupation: works at [employer] ,two cats healthy Review of Systems Const All systems reviewed & are unremarkable except as noted in HPI and below Physical Exam Vital Signs: BMI result Body Mass Index 27.5 Const General: cooperative, healthy appearing and no acute distress Orientation/consciousness: patient oriented x3 HEENT Head: Yes normocephalic and Yes atraumatic Eyes EOM: EOMs intact bilaterally Resp Effort & Inspection: normal respiratory effort and able to speak in complete sentences Cardio Jugular venous distension: no JVD Skin General skin exam: turgor normal Rashes: no rashes Neuro General: patient oriented x3 Extrem Other: Evaluation of Left Upper Extremity: The patient is alert, oriented, and in no acute distress Neuro: Median, Ulnar, Radial nerves motor and sensory intact and sensation is normal to the tips of all digits Vascular: Cap refill brisk ROM: She can weakly make a fist and extend all her digits Skin: No lacerations or abrasions or evidence of open fracture General: Ecchymosis & swelling about the fracture site No Erythema or evidence of infection. Most tender over the distal radius No tenderness over the DRUJ or distal ulna DRUJ stable on exam No tenderness about the elbow and no pain with proximal foream squeeze No snuffbox or scaphoid tubercle tenderness Small amount of clinical radial deviation at the fracture site Radiographs: 3 views of the Left wrist were taken and viewed by me today in clinic. They show a distal radius fracture with some loss of inclination, no change in alignment when compared to radiographs from 11/30/24, and an ulnar styloid fracture, with satisfactory fracture alignment. Psych Appearance: grossly normal Affect: normal affect Attitude: cooperative Assessment & Plan Assessment & Plan (1) Distal radius fracture, left: Code(s): S52.502A - Unspecified fracture of the lower end of left radius, initial encounter for closed fracture Category: Medical Qualifiers: Encounter type: initial encounter Fracture morphology: Colles' Fracture type: closed Qualified Code(s): S52.532A - Colles' fracture of left radius, initial encounter for closed fracture (2) Fracture of ulnar styloid: Code(s): S52.613A - Displaced fracture of unspecified ulna styloid process, initial encounter for closed fracture Category: Medical Qualifiers: Encounter type: initial encounter Fracture alignment: nondisplaced Fracture type: closed Laterality: left Qualified Code(s): S52.615A - Nondisplaced fracture of left ulna styloid process, initial encounter for closed fracture (3) HIV (human immunodeficiency virus infection): Comment: She has great improvement in CD4 count and viral load but still not undetectable (was over a million viral copies to begin with Code(s): B20 - Human immunodeficiency virus [HIV] disease Category: Medical Plan Assessment & Plan: 1. Left distal radius fracture, possible volar Leonard with no displacement since last week From a fall, DOI: 11/30/24 2. Left ulnar styloid fracture, From a fall, DOI: 11/30/24 I educated her about this condition. I am concerned about a possible volar leonard fracture. I discussed operative and non-operative treatment options We will manage this conservatively at this time, and she is in agreement She was placed in a short arm cast for the next week. I explained that if there is any change in her fracture alignment in the next week, we may need to proceed with surgery. She expressed understanding I discussed activity modifications, she is to lift nothing heavier than a cellphone for the next 6 weeks She will perform gentle finger ROM exercises at home She was given a note to remain out of work for the next 2 weeks She will follow up on 12/12/24, with X-rays, 3V L wrist, OOP, wih a good lateral view Depending on radiographs, we may proceed with surgery on 12/14/24 vs placing her back into a cast Scribed for Donna Archuleta MD by Laci Marc, certified medical dosimetrist, on 12/05/24 at 10:40 AM, EST. Orders: Orders XR wrist LT min 3V Today M25.532 - Pain in left wrist Coding Level of Care Code New Pt Level 4 (07177) Diagnoses Distal radius fracture, left S52.532A Encounter type: initial encounter Fracture morphology: Colles' Fracture type: closed Fracture of ulnar styloid S52.615A Encounter type: initial encounter Fracture alignment: nondisplaced Fracture type: closed Laterality: left HIV (human immunodeficiency virus infection) B20
--- OUTSIDE RECORDS SUMMARY | 2024-12-05 11:38 | XMS_ITS | Clinical Summary ---
Author Organization [facility] it Address [address] [place] [address] Care Team Providers Care Aircraft Engine Installer Name Role Phone Antonia eVla MD Primary Care Provider [phone] Allergies No known active allergies Medications traZODone [...] HPV Routine 01/09/2021 LIPID PANEL Routine 10/22/2020 [facility] MAMMO BI INCL CAD Routine 01/20/2019 4:15 PM EDT Encounter for screening mammogram for malignant neoplasm of breast COLONOSCOPY Routine 02/15/2018 HEPATITIS C SCREENING Routine 05/26/2013 from Last 3 Months or Most Recently Relevant to Health Maintenance Results * Annual BMP Blood Test (02/18/2022) Pathologist [facility] Annual BMP Blood Test abstracted [facility] Provider [facility] Final Result * Cervical Cancer Screening: HPV (01/09/2021) Pathologist [facility] Cervical Cancer Screening: HPV abstracted, negative [facility] Provider [facility] Final Result * Lipid panel (10/22/2020) [facility] LDL/HDL Ratio 0 Comment:abstracted, no inter pretation Triglycerides 0 mg/dL Comment:abstracted, no inter pretation Cholesterol 0 mg/dL Comment:abstracted, no inter pretation HDL 0 mg/dL Comment:abstracted, no inter pretation LDL Cholesterol 0 mg/dL Comment:abstracted, no inter pretation Blood Venous blood specimen / Unknown Result [facility] Provider LAB BLOOD ORDERABLES Karely l Result [...] XR PROCEDURES Final Result * Colonoscopy (02/15/2018) [facility] Colonoscopy abstracted, no interpretation Anatomical Region Laterality Modality Other Historical Provider HEALTH MAINTENANCE Final Result * Hepatitis C Screening (05/26/2013) [facility] Hepatitis C Screening abstracted Historical Provider HEALTH MAINTENANCE Final Result from Last 3 Months or Most Recently Relevant to Health Maintenance Care Teams Aircraft Engine Installer Relationship Specialty Start Date End Date Antonia Vela MD [address] [place] [address] PCP - General 12/06/01
== END 2024-12-05 10:45 | disposition home or self-care (01) ==
LOC: HO.HOS 10:11
PROVIDERS: PCP Family Medicine; Visit Provider Orthopaedic Surgery
DX: S52.532A Colles' fracture of left radius, initial encounter for closed fracture (principal); S52.615A Nondisplaced fracture of left ulna styloid process, initial encounter for closed fracture; B20 Human immunodeficiency virus [HIV] disease
CPT/HCPCS: 25600; 99204

== ENCOUNTER 2024-12-05 10:12 | Outpatient (REF) | payer OTHER, SELFPAY ==
--- NOTE | ~2024-12-05 | XR_ITS ---
EXAMINATION: XR WRIST 3 OR MORE VIEWS LEFT HISTORY: M25.532 - Pain in left wrist COMPARISON: Comparison is made with the prior examination dated 11/30/2024. FINDINGS: Five views of the left wrist are submitted. The bones are osteopenic. Again seen is a comminuted intra-articular fracture of the distal radial metaphysis. The fracture line remains visible. No significant callus formation is noted. There is an associated fracture of the ulnar styloid. The joint spaces are preserved. The soft tissues are unremarkable. XR/XR wrist LT min 3V IMPRESSION: Comminuted intra-articular fracture of the distal radial metaphysis with associated ulnar styloid fracture without significant change. Electronically signed by: Edd Eduardo MD 12/06/2024 05:57 PM EDT
--- OUTSIDE RECORDS SUMMARY | 2024-12-06 11:19 | XMS_ITS | Clinical Summary ---
Author Organization [facility] it Address [address] [place] [address] Care Team Providers Care Life Teacher Name Role Phone Antonia Vela MD Primary Care Provider [phone] Allergies No known active allergies Medications traZODone [...] HPV Routine 01/09/2021 LIPID PANEL Routine 10/22/2020 [facility] MAMMO BI INCL CAD Routine 01/20/2019 4:15 PM EDT Encounter for screening mammogram for malignant neoplasm of breast COLONOSCOPY Routine 02/15/2018 HEPATITIS C SCREENING Routine 05/26/2013 from Last 3 Months or Most Recently Relevant to Health Maintenance Results * Annual BMP Blood Test (02/18/2022) Pathologist [facility] Annual BMP Blood Test abstracted [facility] Provider [facility] Final Result * Cervical Cancer Screening: HPV (01/09/2021) Pathologist [facility] Cervical Cancer Screening: HPV abstracted, negative [facility] Provider [facility] Final Result * Lipid panel (10/22/2020) [facility] LDL/HDL Ratio 0 Comment:abstracted, no inter pretation Triglycerides 0 mg/dL Comment:abstracted, no inter pretation Cholesterol 0 mg/dL Comment:abstracted, no inter pretation HDL 0 mg/dL Comment:abstracted, no inter pretation LDL Cholesterol 0 mg/dL Comment:abstracted, no inter pretation Blood Venous blood specimen / Unknown Result [facility] Provider LAB BLOOD ORDERABLES Karely l [...] XR PROCEDURES Final Result * Colonoscopy (02/15/2018) [facility] Colonoscopy abstracted, no interpretation Anatomical Region Laterality Modality Other Historical Provider HEALTH MAINTENANCE Final Result * Hepatitis C Screening (05/26/2013) [facility] Hepatitis C Screening abstracted Historical Provider HEALTH MAINTENANCE Final Result from Last 3 Months or Most Recently Relevant to Health Maintenance Care Teams Life Teacher Relationship Specialty Start Date End Date Antonia eVla MD [address] [place] [address] PCP - General 12/06/01
== END 2024-12-05 10:13 | disposition home or self-care (01) ==
LOC: HO.HOSX 10:12
PROVIDERS: Visit Provider Orthopaedic Surgery
DX: B20 Human immunodeficiency virus [HIV] disease (principal); S52.572D Other intraarticular fracture of lower end of left radius, subsequent encounter for closed fracture with routine healing; S52.612D Displaced fracture of left ulna styloid process, subsequent encounter for closed fracture with routine healing; M25.532 Pain in left wrist
CPT/HCPCS: 25600; 73110

== ENCOUNTER → 2024-12-05 10:14 | Outpatient (BNV) | payer OTHER, SELFPAY | PROVIDERS: Visit Provider Radiology Diagnostic Radiology | DX: S52.572A Other intraarticular fracture of lower end of left radius, initial encounter for closed fracture (principal); S52.612A Displaced fracture of left ulna styloid process, initial encounter for closed fracture | CPT/HCPCS: 73110 ==

== ENCOUNTER 2024-12-12 11:29 | Outpatient (REF) | payer OTHER, SELFPAY ==
--- NOTE | ~2024-12-12 | XR_ITS ---
EXAMINATION: XR WRIST 3 OR MORE VIEWS LEFT HISTORY: M25.532 - Pain in left wrist COMPARISON: Comparison is made with the prior examination dated 12/05/2024. FINDINGS: Three views of the left wrist are submitted. The bones are osteopenic. Again seen is a comminuted intra-articular fracture of the distal radial metaphysis and an associated fracture of the ulnar styloid. Alignment is unchanged. No significant callus formation is seen. The joint spaces are preserved. There is diffuse soft tissue swelling. XR/XR wrist LT min 3V IMPRESSION: Osteopenia. Comminuted intra-articular fracture of the distal radial metaphysis with an associated ulnar styloid fracture without significant change. Electronically signed by: Edd Eduardo MD 12/12/2024 03:36 PM EDT
--- OUTSIDE RECORDS SUMMARY | 2024-12-13 12:54 | XMS_ITS | Clinical Summary ---
Author Organization [facility] it Address [address] [place] [address] Care Team Providers Care Coat Tailor Name Role Phone Antonia Vela MD Primary Care Provider [phone] Allergies No known active allergies Medications traZODone [...] HPV Routine 01/09/2021 LIPID PANEL Routine 10/22/2020 [facility] MAMMO BI INCL CAD Routine 01/20/2019 4:15 PM EDT Encounter for screening mammogram for malignant neoplasm of breast COLONOSCOPY Routine 02/15/2018 HEPATITIS C SCREENING Routine 05/26/2013 from Last 3 Months or Most Recently Relevant to Health Maintenance Results * Annual BMP Blood Test (02/18/2022) Pathologist [facility] Annual BMP Blood Test abstracted [facility] Provider [facility] Final Result * Cervical Cancer Screening: HPV (01/09/2021) Pathologist [facility] Cervical Cancer Screening: HPV abstracted, negative [facility] Provider [facility] Final Result * Lipid panel (10/22/2020) [facility] LDL/HDL Ratio 0 Comment:abstracted, no inter pretation Triglycerides 0 mg/dL Comment:abstracted, no inter pretation Cholesterol 0 mg/dL Comment:abstracted, no inter pretation HDL 0 mg/dL Comment:abstracted, no inter pretation LDL Cholesterol 0 mg/dL Comment:abstracted, no inter pretation Blood Venous blood specimen / Unknown Result [facility] Provider LAB BLOOD ORDERABLES Karely l Result [...] XR PROCEDURES Final Result * Colonoscopy (02/15/2018) [facility] Colonoscopy abstracted, no interpretation Anatomical Region Laterality Modality Other Historical Provider HEALTH MAINTENANCE Final Result * Hepatitis C Screening (05/26/2013) [facility] Hepatitis C Screening abstracted Historical Provider HEALTH MAINTENANCE Final Result from Last 3 Months or Most Recently Relevant to Health Maintenance Care Teams Coat Tailor Relationship Specialty Start Date End Date Antonia Vela MD [address] [place] [address] PCP - General 12/06/01
== END 2024-12-12 11:30 | disposition home or self-care (01) ==
LOC: HO.HOSX 11:29
PROVIDERS: Visit Provider Orthopaedic Surgery
DX: M25.532 Pain in left wrist (principal)
CPT/HCPCS: 73110

== ENCOUNTER 2024-12-12 14:35 | Outpatient (AMB) | payer OTHER, SELFPAY ==
[2024-12-12 15:08] VITALS: BMI 27.5
--- NOTE | 2024-12-12 15:08 | A.OFFVIS_ITS ---
Vital Signs 12/12/24 15:08 Height 5 ft Weight 141 lb BMI 27.5 Intake Visit Reasons: OV- Left distal radius fx DOI: 11/30/24 Intake Note: Myra 64 yr old female presents today for her post op visit for her Left distal radius fx DOI: 11/30/24. Cast removed and xrays updated in office. States she has soreness, swelling in her finger and is working on making a fist. Allergies sulfamethoxazole [From Bactrim] Allergy (Mild, Verified 12/12/24 15:11) Rash trimethoprim [From Bactrim] Allergy (Mild, Verified 12/12/24 15:11) Rash niacin [NIACIN] Allergy (Unknown, Verified 12/12/24 15:11) FLUSH HPI HPI OV- Left distal radius fx DOI: 11/30/24: Details: Myra is a 64 year old right hand dominant woman who returns for her left distal radius & ulnar styloid fractures, S/P fall, DOI: 11/30/24. She complains of pain in her wrist, as well as soreness in her thumb. She also complains of swelling. She says she has worsening soreness today after her cast was removed She has HIV. 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 [facility] Medical History Cough Rash HIV (human immunodeficiency virus infection) Surgical History No pertinent past surgical history Family History Paternal Grandmother Liver cancer Maternal Grandfather Bone cancer Maternal Grandmother Breast cancer Maternal Aunt Breast cancer Social History Household Members: None Housing: Condominium Are you a primary progressive care nurse to a significant other at home: No Do you presently have visiting nurse or other home services: No Patient Tobacco Use Status: Never used Tobacco Second Hand Smoke Exposure: No service: No Current occupational status: employed Current occupation: works at [employer] ,two [employer] healthy Review of Systems Const All systems reviewed & are unremarkable except as noted in HPI and below Physical Exam Vital Signs: BMI result Body Mass Index 27.5 Const General: no acute distress and alert Orientation/consciousness: patient oriented x3 Neuro General: patient oriented x3 Extrem Other: Evaluation of Left Upper Extremity: The patient is alert, oriented, and in no acute distress Neuro: Median, Ulnar, Radial nerves motor and sensory intact and sensation is normal to the tips of all digits Vascular: Cap refill brisk ROM: She can weakly make a fist and extend all her digits Skin: No lacerations or abrasions or evidence of open fracture General: Ecchymosis & swelling about the fracture site No Erythema or evidence of infection. Most tender over the distal radius No tenderness about the elbow and no pain with proximal foream squeeze Small amount of clinical radial deviation at the fracture site Radiographs: 3 views of the Left wrist were taken and viewed by me today in clinic. They show a distal radius fracture with proximal migration of the volar leonard fragment si gnificantly since last week's x-rays., she also has ulnar styloid fracture. Psych Appearance: grossly normal Affect: normal affect Attitude: cooperative Assessment & Plan Assessment & Plan (1) Distal radius fracture, left: Code(s): S52.502A - Unspecified fracture of the lower end of left radius, initial encounter for closed fracture Category: Medical Qualifiers: Encounter type: initial encounter Fracture morphology: Colles' Fracture type: closed Qualified Code(s): S52.532A - Colles' fracture of left radius, initial encounter for closed fracture (2) Fracture of ulnar styloid: Code(s): S52.613A - Displaced fracture of unspecified ulna styloid process, initial encounter for closed fracture Category: Medical Qualifiers: Encounter type: initial encounter Fracture alignment: nondisplaced Fracture type: closed Laterality: left Qualified Code(s): S52.615A - Nondisplaced fracture of left ulna styloid process, initial encounter for closed fracture (3) HIV (human immunodeficiency virus infection): Comment: She has great improvement in CD4 count and viral load but still not undetectable (was over a million viral copies to begin with Code(s): B20 - Human immunodeficiency virus [HIV] disease Category: Medical Plan Assessment & Plan: 1. Left distal radius fracture, volar Leonard with proximal migration of the fragment From a fall, DOI: 11/30/24 2. Left ulnar styloid fracture, From a fall, DOI: 11/30/24 I educated her about this condition. Her fracture now has some displacement I recommend surgery, and she is in agreement We placed her in a volar splint, to be worn until her DOS. The risks and benefits of operative treatment were discussed with the patient and the patient wishes to proceed with surgery. These risks include, but are not limited to risk of damage to blood vessels, nerves, tendons, infection, recurrence, incomplete relief of preoperative symptoms, persistent pain, possible need for further surgery and the risks associated with regional blocks and anesthesia. The plan is to take the patient to the operating room sometime on 12/14/24 for the following procedures: 1. Left distal radius volar leonard fracture ORIF, under general All of the preoperative paperwork including the consent was reviewed today. All the patient's questions were answered. The patient understands that they will be contacted by our administration dean soon to schedule this procedure She denies Diabetes, blood thinners, asthma, heart, lung, kidney issues She has HIV, and is on medication for this. She says this is currently undetectable Scribed for Donna Archuleta MD by Laci Marc, faculty i on call medical assistant, on 12/12/24 at 3:20 PM, EST. Orders: Orders XR wrist LT min 3V Today M25.532 - Pain in left wrist Coding Level of Care Code Est Pt Level 4 (42348) Diagnoses Distal radius fracture, left S52.532A Encounter type: initial encounter Fracture morphology: Colles' Fracture type: closed Fracture of ulnar styloid S52.615A Encounter type: initial encounter Fracture alignment: nondisplaced Fracture type: closed Laterality: left HIV (human immunodeficiency virus infection) B20
--- OUTSIDE RECORDS SUMMARY | 2024-12-12 15:53 | XMS_ITS | Clinical Summary ---
Author Organization [facility] it Address [address] [place] [address] Care Team Providers Care Corporate Tutor Name Role Phone Antonia Vela MD Primary Care Provider [phone] Allergies No known active allergies Medications traZODone [...] HPV Routine 01/09/2021 LIPID PANEL Routine 10/22/2020 [facility] MAMMO BI INCL CAD Routine 01/20/2019 4:15 PM EDT Encounter for screening mammogram for malignant neoplasm of breast COLONOSCOPY Routine 02/15/2018 HEPATITIS C SCREENING Routine 05/26/2013 from Last 3 Months or Most Recently Relevant to Health Maintenance Results * Annual BMP Blood Test (02/18/2022) Pathologist [facility] Annual BMP Blood Test abstracted [facility] Provider [facility] Final Result * Cervical Cancer Screening: HPV (01/09/2021) Pathologist [facility] Cervical Cancer Screening: HPV abstracted, negative [facility] Provider [facility] Final Result * Lipid panel (10/22/2020) [facility] LDL/HDL Ratio 0 Comment:abstracted, no inter pretation Triglycerides 0 mg/dL Comment:abstracted, no inter pretation Cholesterol 0 mg/dL Comment:abstracted, no inter pretation HDL 0 mg/dL Comment:abstracted, no inter pretation LDL Cholesterol 0 mg/dL Comment:abstracted, no inter pretation Blood Venous blood specimen / Unknown Result [facility] Provider LAB BLOOD ORDERABLES Karely l Result [...] PROCEDURES Final Result * Colonoscopy (02/15/2018) [facility] Colonoscopy abstracted, no interpretation Anatomical Region Laterality Modality Other Historical Provider HEALTH MAINTENANCE Final Result * Hepatitis C Screening (05/26/2013) [facility] Hepatitis C Screening abstracted Historical Provider HEALTH MAINTENANCE Final Result from Last 3 Months or Most Recently Relevant to Health Maintenance Care Teams Corporate Tutor Relationship Specialty Start Date End Date Antonia Vela MD [address] [place] [address] PCP - General 12/06/01
== END 2024-12-12 15:49 | disposition home or self-care (01) ==
LOC: HO.HOS 14:42
PROVIDERS: PCP Family Medicine; Visit Provider Orthopaedic Surgery
DX: S52.532A Colles' fracture of left radius, initial encounter for closed fracture (principal); S52.615A Nondisplaced fracture of left ulna styloid process, initial encounter for closed fracture; B20 Human immunodeficiency virus [HIV] disease
CPT/HCPCS: 99024

== ENCOUNTER → 2024-12-12 14:45 | Outpatient (BNV) | payer OTHER, SELFPAY | PROVIDERS: Visit Provider Radiology Diagnostic Radiology | DX: S52.572A Other intraarticular fracture of lower end of left radius, initial encounter for closed fracture (principal); S52.611A Displaced fracture of right ulna styloid process, initial encounter for closed fracture | CPT/HCPCS: 73110 ==

== ENCOUNTER 2024-12-14 07:27 | Day surgery (SDC) | payer OTHER, SELFPAY ==
--- NOTE | 2024-12-13 10:00 | HO.ANESPROP2 ---
HPI - Anesthesia Eval Consult details Narrative: 64yo F for Left Radius Distal Fracture ORIF PMFSH Active Problems Active Problems: All Active Problems Fracture of ulnar styloid (Acute) Distal radius fracture, left (Acute) Pre-op examination (Acute) LGSIL on Pap smear of cervix (Acute) HIV (human immunodeficiency virus infection) (Acute) Pancytopenia (Acute) Past Medical History Medical History Cough Rash HIV (human immunodeficiency virus infection) Family History Family History Paternal Grandmother Liver cancer Maternal Grandfather Bone cancer Maternal Grandmother Breast cancer Maternal Aunt Breast cancer Surgical History Surgical History No pertinent past surgical history Social History Social History Household Members: None Housing: Condominium Are you a primary certified caregiver to a significant other at home: No Do you presently have visiting nurse or other home services: No Patient Tobacco Use Status: Never used Tobacco Second Hand Smoke Exposure: No service: No Current occupational status: employed Current occupation: works at [employer] ,two cats healthy [employer] Allergies Allergy/AdvReac Type Severity Reaction Status Date / Time sulfamethoxazole Allergy Mild Rash Verified 12/12/24 15:11 [From Bactrim] trimethoprim [From Bactrim] Allergy Mild Rash Verified 12/12/24 15:11 niacin [NIACIN] Allergy Unknown FLUSH Verified 12/12/24 15:11 Home Medications ?Medication ?Instructions ?Recorded ?Confirmed ?Last Taken ?Type trazodone 100 mg tablet 2.5 tab PO BEDTIME PRN insomnia 04/28/22 05/28/22 Unknown History clonazepam 0.5 mg tablet 1 tab PO DAILY PRN anxiety 05/28/22 05/28/22 Unknown History alendronate 70 mg tablet 70 mg PO QWEEK 06/07/24 Unknown History cholecalciferol (vitamin D3) 25 25 mcg PO DAILY 06/07/24 Unknown History mcg (1,000 unit) tablet Assessment and Plan Assessment Anesthesia Assessment: Chart Reviewed
[2024-12-14] VITALS (7 sets, daily range): BP systolic 119–156; BP diastolic 76–101; PULSE 81–112; RESP 16–20; TEMP 36.1–36.8; O2SAT 96; BMI 27.5
--- NOTE | ~2024-12-14 | FL_ITS ---
EXAMINATION: FL GUIDANCE ONLY HISTORY: distal radius fracture COMPARISON: Correlation is made with plain films of the left wrist dated 12/12/2024. TECHNIQUE: Fluoroscopy time: 0.6 minutes. Cumulative Dose: 1.0387 mGy. DAP: 0.0628 mGym2 Images: 2. FINDINGS: Images demonstrate internal fixation of the previously seen fracture of the distal radial metaphysis with a sideplate and multiple orthopedic screws. FL/FL guidance in OR IMPRESSION: Fluoroscopy during procedure. Please see procedure report for additional information. Electronically signed by: Edd Eduardo MD 12/14/2024 02:05 PM EDT
--- NOTE | 2024-12-14 07:42 | MHC.SHP ---
Pre-Procedural Eval Section A - 24 Hr Update-Section A only Date of Service: 12/14/24 The patient is an INPATIENT: No Changes since office visit: No Cold of Flu in the past 2 weeks, No New Medical Problems, No Changes in Medication and No Patient answered all questions The patient has been examined within 24 hours of the surgical procedure. The History & Physical has been completed within 30 days and I have reviewed it.: Yes Section B - Complete if H&P > 30 days Chief Complaint: Unspecified fracture of the lower end of left Allergies: Allergies Allergy/AdvReac Type Severity Reaction Status Date / Time sulfamethoxazole Allergy Mild Rash Verified 12/12/24 15:11 [From Bactrim] trimethoprim [From Bactrim] Allergy Mild Rash Verified 12/12/24 15:11 niacin [NIACIN] Allergy Unknown FLUSH Verified 12/12/24 15:11 Plan Diagnosis/Plan: Unchanged I have reviewed the history and physical and performed a pertinent physical examination on my patient. No changes have occurred unless specified. Time Spent With Patient Time: Total time managing care of this patient today ____ minutes.
--- NOTE | 2024-12-14 07:42 | W.PM.OPN ---
Operative Note Operative Note Date of Service: 12/14/24 Narrative: Operative Note Narrative: Preop diagnosis: 1. Left Distal radius fracture, intra-articular volar Staton's Postop diagnosis: Same Procedure: 1. Left Distal radius fracture open reduction internal fixation, 2 part intra-articular Surgeon: Donna Archuleta MD Animal Control Licensing Worker: Leighton LOWE Anesthesia: General anesthesia plus regional block Findings: Volar Staton intra-articular distal radius fracture Implants: A 3 hole Accu Med volar locking plate, with 3 x 2.3 mm locking pegs/screws, and 3 3.5 mm cortical screws Tourniquet time: 46 minutes EBL: 5.0 ml Specimen: None Drains: None Complications: None Disposition: Brought to the recovery room in stable condition Plan: Follow-up in 10-14 days for wound check, suture removal and postop radiographs The patient will be placed in either a short-arm cast or a volar wrist splint. Encouraged no lifting of anything heavier than a cell phone. Please encourage active and passive range of motion of the digits. Follow-up at 4-5 weeks postop for repeat radiographs. Indications: The patient is a 64 year old woman with left intra-articular volar Staton distal radius fracture . The risks and benefits of operative treatment, including but not limited to risk of damage to blood vessels, nerves, tendons, infection, recurrence, persistent pain or numbness, incomplete resolution of preoperative symptoms, or need for further surgery were discussed with the patient and they wished to proceed with surgery. Procedure: Once consent was obtained patient was brought back to the operating suite and placed in the operating table in a supine position. A regional block was performed by the anesthesia team. Perioperative antibiotics and anesthesia was administered by the anesthesia team. A tourniquet was applied to the proximal aspect of the left upper extremity and the limb was prepped and draped in a standard surgical fashion. The limb was elevated exsanguinated with Esmarch bandage and the tourniquet inflated to 250 mm of mercury for a total tourniquet time of 46 minutes. The FluoroScan was used throughout the case to assess our reduction, and facilitate implant placement. A gentle closed reduction was 1st performed on the patient's left distal radius fracture. Was assessed radiographically before proceeding with the reduction internal fixation. I then made an 8 cm longitudinal incision over the distal aspect of the flexor carpi radialis tendon. The incision was made through the skin to the subcutaneous tissue using a 15. Blade. Then carefully dissected down to flexor carpi radialis tendon she tenotomy scissors. The FCR tendon sheath was then incised longitudinally using tenotomy scissors under direct visualization. The FCR tendon was then retracted ulnarly. I then made a longitudinal incision in the volar forearm fascia through the floor of FCR tendon sheath using tenotomy scissors under direct visualization. I identified the interval between the radial artery and the flexor tendons. This interval was developed further with my index finger, releasing some of the muscular fibers of the flexor pollicis longus. A dull weatlander retractor was then placed. I then created an ulnarly based flap of the pronator quadratus by releasing the radial and distal edges using a 15. Blade. A Parker elevator was used to elevate the pronator quadratus from the volar surface of the distal radius. This then revealed to us our distal radius fracture. It is a volar Staton intra-articular distal radius fracture with volar and proximal displacement of a rather large fracture fragment. An open reduction was then performed on our distal radius fracture. I then placed a short narrow 3 hole Accu Med volar locking plate on the volar surface of the distal radius. I drilled through the oval hole in the shaft of the radius using a 2.8 mm drill bit. I then placed a 3 5 cortical screw utilizing the volar plate as a buttress plate while holding traction across our fracture. I then placed 3 x locking screws/pegs in the distal aspect of the plate. This was done by 1st drilling using the pre positioned drill guide and a 2.0 mm drill bit, measuring and placing the appropriate length screw/PEG. Two additional 3.5 mm screws were placed proximally through the plate and into the shaft. I was satisfied with our reduction and placement of all implants. Final radiographs were then obtained. The DRUJ was assessed and found to be stable on exam. I was satisfied with our reduction and placement of all implants. At this point the wound was irrigated with normal saline. The pronator quadratus was reduced back over the volar locking plate using some 3-0 Vicryl suture material. The tourniquet was then deflated and hemostasis was obtained with a brief period of local pressure and bipolar monopolar electrocautery. The subcutaneous layer was then reapproximated using some 4-0 Vicryl suture, and the skin edges were reapproximated using some 5 0 Prolene suture. The wound was then infiltrated with some 1% lidocaine with epinephrine postop pain control. A sterile dressing and a short dorsal splint allowing for active flexion and extension of the digits was applied. The patient appears to have tolerated the procedure well and with no complications. All digits were well vascularized conclusion of the case.
[2024-12-14] MEDS: Lactated Ringers 1,000 ML 100 ML IVCONT (07:59)
--- NOTE | 2024-12-14 09:36 | P.CONAN_ITS ---
[facility] Active Problems Active Problems: All Active Problems Fracture of ulnar styloid (Acute) Distal radius fracture, left (Acute) Pre-op examination (Acute) LGSIL on Pap smear of cervix (Acute) HIV (human immunodeficiency virus infection) (Acute) Pancytopenia (Acute) Past Medical History Medical History Cough Rash HIV (human immunodeficiency virus infection) Cognitive capacity: normal Functional capacity: independent ambulation Patient : No Family History Family History Paternal Grandmother Liver cancer Maternal Grandfather Bone cancer Maternal Grandmother Breast cancer Maternal Aunt Breast cancer Family history of problems with anesthesia: No Surgical History Surgical History No pertinent past surgical history History of Problems with Anesthesia: No Social History Social History Household Members: None [facility] Are you a primary critical care unit nurse to a significant other at home: No Do you presently have visiting nurse or other home services: No Patient Tobacco Use Status: Never used Tobacco Second Hand Smoke Exposure: No Use of substances other than those prescribed or required for medical reasons: No Have you been hit, kicked, punched, or otherwise hurt by someone within the past year? If so, by whom?: No Are you DNR?: No Advance Directives: No Advance Directives Information Provided: Yes Advance Directives on File: No Patient : No : No Poor oral hygiene: No service: No Current occupational status: employed Current occupation: works at [employer] ,two cats healthy Meds Allergies Allergy/AdvReac Type Severity Reaction Status Date / Time sulfamethoxazole Allergy Mild Rash Verified 12/12/24 15:11 [From Bactrim] trimethoprim [From Bactrim] Allergy Mild Rash Verified 12/12/24 15:11 niacin [NIACIN] Allergy Unknown FLUSH Verified 12/12/24 15:11 Active Medications: Current Medications Lactated Ringer's (Lr) 1,000 mls @ 100 mls/hr IVCONT .Q10H RIVER Last Admin: 12/14/24 07:59 Dose: 100 mls/hr Home Medications ?Medication ?Instructions ?Recorded ?Confirmed ?Last Taken ?Type trazodone 100 mg tablet 2.5 tab PO BEDTIME PRN insomnia 04/28/22 05/28/22 Unknown History clonazepam 0.5 mg tablet 1 tab PO DAILY PRN anxiety 05/28/22 05/28/22 Unknown History alendronate 70 mg tablet 70 mg PO QWEEK 06/07/24 Unknown History cholecalciferol (vitamin D3) 25 25 mcg PO DAILY 06/07/24 Unknown History mcg (1,000 unit) tablet Exam Height,Weight and Vital Signs: Height 5 ft Weight 63.957 kg Last Vital Signs Temp 96.9 F 12/14/24 07:52 Pulse 81 12/14/24 07:52 Resp 18 12/14/24 07:52 BP 156/101 H 12/14/24 07:52 Pulse Ox 96 12/14/24 07:52 O2 Del Method Room Air 12/14/24 07:52 Pertinent Lab Results Pertinent Lab Results: reviewed Airway Mallampati Class: II TM Dist: >3cm Neck ROM: Full Loose/Missing/Broken Teeth: No Heart: rrr Lungs: cta Assessment and Plan Final Anesthetic Review Family History of Problems with Anesthesia: No History of Problems with Anesthesia: No Final Preanesthetic Review: No Changes in Pt Med Stat, Meds/Allgs Chart Reviewed, Consent Obtained/Reviewed and Anes Risks/Benef Reviewed Patient Risk: Low Procedure Risk: Low Anesthetic Plan Anesthetic Plan: GA Disposition: Standard PACU
--- NOTE | 2024-12-14 09:42 | P.CONAN_ITS ---
PMFSH Active Problems Active Problems: All Active Problems Fracture of ulnar styloid (Acute) Distal radius fracture, left (Acute) Pre-op examination (Acute) LGSIL on Pap smear of cervix (Acute) HIV (human immunodeficiency virus infection) (Acute) Pancytopenia (Acute) Past Medical History Medical History Cough Rash HIV (human immunodeficiency virus infection) Functional capacity: independent ambulation Family History Family History Paternal Grandmother Liver cancer Maternal Grandfather Bone cancer Maternal Grandmother Breast cancer Maternal Aunt Breast cancer Family history of problems with anesthesia: No Surgical History Surgical History No pertinent past surgical history History of Problems with Anesthesia: No Social History Social History Household Members: None [facility] Are you a primary landcare facilitator to a significant other at home: No Do you presently have visiting nurse or other home services: No Patient Tobacco Use Status: Never used Tobacco Second Hand Smoke Exposure: No service: No Current occupational status: employed Current occupation: works at [employer] ,[employer] Allergies Allergy/AdvReac Type Severity Reaction Status Date / Time sulfamethoxazole Allergy Mild Rash Verified 12/12/24 15:11 [From Bactrim] trimethoprim [From Bactrim] Allergy Mild Rash Verified 12/12/24 15:11 niacin [NIACIN] Allergy Unknown FLUSH Verified 12/12/24 15:11 Active Medications: Current Medications Lactated Ringer's (Lr) 1,000 mls @ 100 mls/hr IVCONT .Q10H RIVER Last Admin: 12/14/24 07:59 Dose: 100 mls/hr Home Medications ?Medication ?Instructions ?Recorded ?Confirmed ?Last Taken ?Type trazodone 100 mg tablet 2.5 tab PO BEDTIME PRN insomnia 04/28/22 05/28/22 Unknown History clonazepam 0.5 mg tablet 1 tab PO DAILY PRN anxiety 05/28/22 05/28/22 Unknown History alendronate 70 mg tablet 70 mg PO QWEEK 06/07/24 Unknown History cholecalciferol (vitamin D3) 25 25 mcg PO DAILY 06/07/24 Unknown History mcg (1,000 unit) tablet Exam Height,Weight and Vital Signs: Height 5 ft Weight 63.957 kg Last Vital Signs Temp 96.9 F 12/14/24 07:52 Pulse 81 12/14/24 07:52 Resp 18 12/14/24 07:52 BP 156/101 H 12/14/24 07:52 Pulse Ox 96 12/14/24 07:52 O2 Del Method Room Air 12/14/24 07:52 Assessment and Plan Final Anesthetic Review Family History of Problems with Anesthesia: No History of Problems with Anesthesia: No ASA Class: II Final Preanesthetic Review: No Changes in Pt Med Stat, Meds/Allgs Chart Reviewed, Consent Obtained/Reviewed and Anes Risks/Benef Reviewed Patient Risk: Low Procedure Risk: Low Anesthetic Plan Anesthetic Plan: GA and Neuraxial Block: Disposition: Standard PACU
[2024-12-14] MEDS: ceFAZolin Sodium/Dextrose,Iso 2 GM/50 ML PIGGYBACK IV (10:15)
== END 2024-12-14 13:10 | disposition home or self-care (01) ==
PROVIDERS: PCP Family Medicine; Visit Provider Orthopaedic Surgery
PROC: (CPT 25608; principal; 2024-12-14 09:20)
DX: S52.562A Barton's fracture of left radius, initial encounter for closed fracture (principal); S52.612A Displaced fracture of left ulna styloid process, initial encounter for closed fracture; M25.532 Pain in left wrist; W19.XXXA Unspecified fall, initial encounter; Y93.9 Activity, unspecified; Y92.9 Unspecified place or not applicable; Y99.9 Unspecified external cause status; B20 Human immunodeficiency virus [HIV] disease; Z79.899 Other long term (current) drug therapy; Z88.2 Allergy status to sulfonamides; Z88.8 Allergy status to other drugs, medicaments and biological substances
CPT/HCPCS: 25608; C1713; J0131; J0665; J0690; J1100; J2003; J2004; J2250; J2405; J2704; J3010

== ENCOUNTER → 2024-12-14 07:27 | Outpatient (BNV) | payer OTHER, SELFPAY | PROVIDERS: PCP Family Medicine; Visit Provider Orthopaedic Surgery | DX: S52.572A Other intraarticular fracture of lower end of left radius, initial encounter for closed fracture (principal) | CPT/HCPCS: 25608 ==

== ENCOUNTER 2024-12-26 10:02 | Outpatient (REF) | payer OTHER, SELFPAY ==
--- NOTE | ~2024-12-26 | XR_ITS ---
EXAMINATION: XR WRIST, LEFT CLINICAL INFORMATION: M25.532 - Pain in left wrist COMPARISON: December 12, 2024. TECHNIQUE: PA, lateral, and oblique views of the left wrist. FINDINGS: There is an intact metallic plate placed along the volar aspect of the distal diaphysis metaphysis and epiphysis of the radius. There is improved anatomic alignment. Comminuted the fracture distal metaphysis of the radius. Displaced fracture styloid process of the ulna. Osteopenia versus osteoporosis. XR/XR wrist LT min 3V IMPRESSION: Status post open reduction internal fixation of the comminuted fractures distal metaphysis left radius. Electronically signed by: Derek Zhang MD 12/26/2024 01:35 PM EDT
--- OUTSIDE RECORDS SUMMARY | 2024-12-27 11:25 | XMS_ITS | Clinical Summary ---
Author Organization [facility] it Address [address] [place] [address] Care Team Providers Care Jumpbasting Canvas Baster Name Role Phone Antonia Vela MD Primary Care Provider [phone] Allergies No known active allergies Medications traZODone [...] HPV Routine 01/09/2021 LIPID PANEL Routine 10/22/2020 [facility] MAMMO BI INCL CAD Routine 01/20/2019 4:15 PM EDT Encounter for screening mammogram for malignant neoplasm of breast COLONOSCOPY Routine 02/15/2018 HEPATITIS C SCREENING Routine 05/26/2013 from Last 3 Months or Most Recently Relevant to Health Maintenance Results * Annual BMP Blood Test (02/18/2022) Pathologist [facility] Annual BMP Blood Test abstracted [facility] Provider [facility] Final Result * Cervical Cancer Screening: HPV (01/09/2021) Pathologist [facility] Cervical Cancer Screening: HPV abstracted, negative [facility] Provider [facility] Final Result * Lipid panel (10/22/2020) [facility] LDL/HDL Ratio 0 Comment:abstracted, no inter pretation Triglycerides 0 mg/dL Comment:abstracted, no inter pretation Cholesterol 0 mg/dL Comment:abstracted, no inter pretation HDL 0 mg/dL Comment:abstracted, no inter pretation LDL Cholesterol 0 mg/dL Comment:abstracted, no inter pretation Blood Venous blood specimen / Unknown Result [facility] Provider LAB BLOOD ORDERABLES Karely l [...] XR PROCEDURES Final Result * Colonoscopy (02/15/2018) [facility] Colonoscopy abstracted, no interpretation Anatomical Region Laterality Modality Other Historical Provider HEALTH MAINTENANCE Final Result * Hepatitis C Screening (05/26/2013) [facility] Hepatitis C Screening abstracted Historical Provider HEALTH MAINTENANCE Final Result from Last 3 Months or Most Recently Relevant to Health Maintenance Care Teams Jumpbasting Canvas Baster Relationship Specialty Start Date End Date Antonia Vela MD [address] [place] [address] PCP - General 12/06/01
== END 2024-12-26 10:03 | disposition home or self-care (01) ==
LOC: HO.HOSX 10:02
DX: B20 Human immunodeficiency virus [HIV] disease (principal); S52.532D Colles' fracture of left radius, subsequent encounter for closed fracture with routine healing; S52.615D Nondisplaced fracture of left ulna styloid process, subsequent encounter for closed fracture with routine healing; M25.532 Pain in left wrist; Z98.890 Other specified postprocedural states
CPT/HCPCS: 29075; 73110

== ENCOUNTER 2024-12-26 13:13 | Outpatient (AMB) | payer OTHER, SELFPAY ==
--- NOTE | 2024-12-26 13:17 | MHC.OFFVIS ---
Intake Visit Reasons: PO LT distal radius ORIF 12/14/24 AR Intake Note: Myra is a 64 year old female who presents today post-operatively status post left distal radius ORIF, DOI: 12/14/[address] Archuleta. Sutures removed and steri-strips applied in office today. Allergies sulfamethoxazole [From Bactrim] Allergy (Mild, Verified 12/26/24 13:26) Rash trimethoprim [From Bactrim] Allergy (Mild, Verified 12/26/24 13:26) Rash niacin [NIACIN] Allergy (Unknown, Verified 12/26/24 13:26) FLUSH HPI HPI PO LT distal radius ORIF 12/14/24 AR: Details: Myra is a 64 year old female who presents today post-operatively status post left distal radius ORIF, DOI: 12/14/[address] Archuleta. Patient reports that she is experiencing some stiffness in the left hand and wrist, but pain overall has decreased significantly since prior to surgery. Sutures removed and steri-strips applied in office today. PFSH Medical History Cough Rash HIV (human immunodeficiency virus infection) Surgical History No pertinent past surgical history Family History Paternal Grandmother Liver cancer Maternal Grandfather Bone cancer Maternal Grandmother Breast cancer Maternal Aunt Breast cancer Social History Household Members: None Housing: Condominium Are you a primary childcare attendant to a significant other at home: No Do you presently have visiting nurse or other home services: No Patient Tobacco Use Status: Never used Tobacco Second Hand Smoke Exposure: No service: No Current occupational status: employed Current occupation: works at [employer] Review of Systems Const All systems reviewed & are unremarkable except as noted in HPI and below Physical Exam Const General: no acute distress and alert Orientation/consciousness: patient oriented x3 Neuro General: patient oriented x3 Extrem Other: Evaluation of Left Upper Extremity: The patient is alert, oriented, and in no acute distress Neuro: Median, Ulnar, Radial nerves motor and sensory intact and sensation is normal to the tips of all digits Vascular: Cap refill brisk ROM: She can weakly make a fist and extend all her digits Skin: Approximated and well healing incision site noted over the volar aspect of the left distal radius No lacerations or abrasions or evidence of open fracture General: Ecchymosis about the fracture site No Erythema or evidence of infection. Most tender over the distal radius No tenderness about the elbow and no pain with proximal foream squeeze Psych Appearance: grossly normal Affect: normal affect Attitude: cooperative Office Procedures Casting/Splints 16523-Pnnd/Wrist Cast Application Procedure code (CPT) selection complete Results Reviewed Results Reviewed: X-rays obtained in the office today and independently reviewed by me, Leighton Cadena PA-C, demonstrate surgically corrected fracture of the left distal radius with slight increase in apex volar angulation since surgical radiographs. Assessment & Plan Assessment & Plan (1) Distal radius fracture, left: Code(s): S52.502A - Unspecified fracture of the lower end of left radius, initial encounter for closed fracture Category: Medical Qualifiers: Encounter type: initial encounter Fracture morphology: Colles' Fracture type: closed Qualified Code(s): S52.532A - Colles' fracture of left radius, initial encounter for closed fracture (2) Fracture of ulnar styloid: Code(s): S52.613A - Displaced fracture of unspecified ulna styloid process, initial encounter for closed fracture Category: Medical Qualifiers: Encounter type: initial encounter Fracture alignment: nondisplaced Fracture type: closed Laterality: left Qualified Code(s): S52.615A - Nondisplaced fracture of left ulna styloid process, initial encounter for closed fracture (3) HIV (human immunodeficiency virus infection): Comment: She has great improvement in CD4 count and viral load but still not undetectable (was over a million viral copies to begin with Code(s): B20 - Human immunodeficiency virus [HIV] disease Category: Medical Plan Assessment & Plan: 1. Left distal radius fracture, volar Staton with proximal migration of the fragment From a fall, DOI: 11/30/24 Status post ORIF, DOS 12/14/2024 2. Left ulnar styloid fracture, From a fall, DOI: 11/30/24 Patient appears to be recovering well postoperatively Patient is educated about the typical recovery course At this time, patient is placed into a short-arm cast Patient is educated on proper cast care and precautions Follow-up in 2 weeks with repeat x-rays for reassessment, anticipate cast removal at that time, sooner with any acute concerns Orders: Orders XR wrist LT min 3V Today M25.532 - Pain in left wrist Coding Level of Care Code Global (68623) Diagnoses Distal radius fracture, left S52.532A Encounter type: initial encounter Fracture morphology: Colles' Fracture type: closed Fracture of ulnar styloid S52.615A Encounter type: initial encounter Fracture alignment: nondisplaced Fracture type: closed Laterality: left HIV (human immunodeficiency virus infection) B20 CPT Codes Casting - CPT: 66609-Sbto/Wrist Cast Application ([id number])
--- OUTSIDE RECORDS SUMMARY | 2024-12-26 14:17 | XMS_ITS | Clinical Summary ---
Author Organization [facility] it Address [address] [place] [address] Care Team Providers Care Product Applications Scientist Name Role Phone Antonia Vela MD Primary Care Provider [phone] Allergies No known active allergies Medications traZODone [...] HPV Routine 01/09/2021 LIPID PANEL Routine 10/22/2020 [facility] MAMMO BI INCL CAD Routine 01/20/2019 4:15 PM EDT Encounter for screening mammogram for malignant neoplasm of breast COLONOSCOPY Routine 02/15/2018 HEPATITIS C SCREENING Routine 05/26/2013 from Last 3 Months or Most Recently Relevant to Health Maintenance Results * Annual BMP Blood Test (02/18/2022) Pathologist [facility] Annual BMP Blood Test abstracted [facility] Provider [facility] Final Result * Cervical Cancer Screening: HPV (01/09/2021) Pathologist [facility] Cervical Cancer Screening: HPV abstracted, negative [facility] Provider [facility] Final Result * Lipid panel (10/22/2020) [facility] LDL/HDL Ratio 0 Comment:abstracted, no inter pretation Triglycerides 0 mg/dL Comment:abstracted, no inter pretation Cholesterol 0 mg/dL Comment:abstracted, no inter pretation HDL 0 mg/dL Comment:abstracted, no inter pretation LDL Cholesterol 0 mg/dL Comment:abstracted, no inter pretation Blood Venous blood specimen / Unknown Result [facility] Provider LAB BLOOD ORDERABLES Karely l [...] Recently Relevant to Health Maintenance Care Teams Product Applications Scientist Relationship Specialty Start Date End Date Antonia Vela MD [address] [place] [address] PCP - General 12/06/01
== END 2024-12-26 14:09 | disposition home or self-care (01) ==
LOC: HO.HOS 13:13
DX: S52.532A Colles' fracture of left radius, initial encounter for closed fracture (principal); S52.615A Nondisplaced fracture of left ulna styloid process, initial encounter for closed fracture; B20 Human immunodeficiency virus [HIV] disease
CPT/HCPCS: 29075; 99024

== ENCOUNTER → 2024-12-26 13:13 | Outpatient (BNV) | payer OTHER, SELFPAY | PROVIDERS: Visit Provider Radiology Diagnostic Radiology | DX: S52.612A Displaced fracture of left ulna styloid process, initial encounter for closed fracture (principal) | CPT/HCPCS: 73110 ==

== ENCOUNTER 2025-01-09 11:23 | Outpatient (REF) | payer OTHER, SELFPAY ==
--- NOTE | ~2025-01-09 | XR_ITS ---
EXAMINATION: XR WRIST, LEFT CLINICAL INFORMATION: M25.532 - Pain in left wrist , fracture November 30, 2024, post-ORIF COMPARISON: 12/26/2024 TECHNIQUE: PA, lateral, and oblique views of the left wrist. FINDINGS: There is decreasing bone mineral density Again seen are postsurgical changes with volar plate and screws fixing an intra-articular distal radial fracture. Hardware is intact and there is no abnormal lucency at bone metal interfaces. Multiple bony fragments are stable in position. Increasing periosteal new bone formation is present on the radial side of the radial metaphysis. There is increasing density of an avulsion fracture involving the radial side of the ulnar styloid. XR/XR wrist LT min 3V IMPRESSION: Evidence of healing status post ORIF of the distal radial intra-articular fracture with volar plate and screws. Healing ulnar styloid fracture. Electronically signed by: Chandler Bernardo MD 01/09/2025 02:17 PM EDT
== END 2025-01-09 11:24 | disposition home or self-care (01) ==
LOC: HO.HOSX 11:23
PROVIDERS: PCP Family Medicine
DX: M25.532 Pain in left wrist (principal)
CPT/HCPCS: 73110

== ENCOUNTER 2025-01-09 11:23 | Outpatient (AMB) | payer OTHER, SELFPAY ==
--- NOTE | 2025-01-09 11:40 | MHC.OFFVIS ---
Vital Signs 01/09/25 11:42 Height 5 ft Handedness Right Intake Visit Reasons: PO LT distal radius ORIF 12/14/24 AR Intake Note: Myra is a 64 year old right hand dominant female who presents today post-operatively status post left distal radius ORIF, DOS: 12/14/[address] Donna Archuleta. Short arm cast removed in office today and x-rays have been updated. Patient reports she feels stiffness and discomfort in her left wrist and left digits with the cast off when she attempts to flex, extend, or rotate her left wrist. She reports feeling random twinges in the left wrist when her cast was on. Allergies sulfamethoxazole [From Bactrim] Allergy (Mild, Verified 01/09/25 11:42) Rash trimethoprim [From Bactrim] Allergy (Mild, Verified 01/09/25 11:42) Rash niacin [NIACIN] Allergy (Unknown, Verified 01/09/25 11:42) FLUSH HPI HPI PO LT distal radius ORIF 12/14/24 AR: Details: Myra is a 64 year old right hand dominant female who presents today post-operatively status post left distal radius ORIF, DOS: 12/14/[address] Donna Archuleta. Short arm cast removed in office today and x-rays have been updated. Patient reports she feels stiffness and discomfort in her left wrist and left digits with the cast off when she attempts to flex, extend, or rotate her left wrist. She reports feeling random twinges in the left wrist when her cast was on. [facility] Medical History (Updated 01/09/25 @ 11:47 by DARWIN Trujillo) Distal radius fracture, left (~11/30/24) Fracture of ulnar styloid (~11/30/24) Cough Rash HIV (human immunodeficiency virus infection) Surgical History No pertinent past surgical history Family History Paternal Grandmother Liver cancer Maternal Grandfather Bone cancer Maternal Grandmother Breast cancer Maternal Aunt Breast cancer Social History Household Members: None Housing: Condominium Are you a primary rn progressive care unit to a significant other at home: No Do you presently have visiting nurse or other home services: No Patient Tobacco Use Status: Never used Tobacco Second Hand Smoke Exposure: No service: No Current occupational status: employed Current occupation: works at [employer] Review of Systems Const All systems reviewed & are unremarkable except as noted in HPI and below Physical Exam Const General: no acute distress and alert Orientation/consciousness: patient oriented x3 Neuro General: patient oriented x3 Extrem Other: Evaluation of Left Upper Extremity: The patient is alert, oriented, and in no acute distress Neuro: Median, Ulnar, Radial nerves motor and sensory intact and sensation is normal to the tips of all digits Vascular: Cap refill brisk Pain: Patient does report some mild tenderness to palpation about the left distal radius Some discomfort with range of motion of the left hand ROM: She can weakly make a fist and extend all her digits Skin: Approximated and well healing incision site noted over the volar aspect of the left distal radius No lacerations or abrasions or evidence of open fracture General: Ecchymosis about the fracture site No Erythema or evidence of infection. Most tender over the distal radius No tenderness about the elbow and no pain with proximal foream squeeze Psych Appearance: grossly normal Affect: normal affect Attitude: cooperative Results Reviewed Results Reviewed: X-rays obtained in the office today and independently reviewed by me, Leighton Cadena PA-C, demonstrate surgically corrected fracture of the left distal radius with all orthopedic hardware in place and with evidence of interval bony healing Assessment & Plan Assessment & Plan (1) Fracture of ulnar styloid: Onset Date: ~11/30/24 Code(s): S52.613A - Displaced fracture of unspecified ulna styloid process, initial encounter for closed fracture Category: Medical Qualifiers: Encounter type: initial encounter Fracture alignment: nondisplaced Fracture type: closed Laterality: left Qualified Code(s): S52.615A - Nondisplaced fracture of left ulna styloid process, initial encounter for closed fracture (2) Distal radius fracture, left: Onset Date: ~11/30/24 Code(s): S52.502A - Unspecified fracture of the lower end of left radius, initial encounter for closed fracture Category: Medical Qualifiers: Encounter type: initial encounter Fracture morphology: Colles' Fracture type: closed Qualified Code(s): S52.532A - Colles' fracture of left radius, initial encounter for closed fracture Plan 1. Status post left distal radius ORIF DOS 12/14/2024 Patient appears to be recovering fairly well postoperatively Patient is educated about the typical recovery course Patient is placed back into a short-arm cast due to tenderness today Patient is educated on proper cast care and precautions Follow-up in 1 week with repeat x-rays, anticipate cast removal at that time, sooner with any acute concerns Orders: Orders XR wrist LT min 3V 01/09/25 M25.532 - Pain in left wrist Coding Level of Care Code Global (71822) Diagnoses Fracture of ulnar styloid S52.615A Encounter type: initial encounter Fracture alignment: nondisplaced Fracture type: closed Laterality: left Distal radius fracture, left S52.532A Encounter type: initial encounter Fracture morphology: Colles' Fracture type: closed
--- OUTSIDE RECORDS SUMMARY | 2025-01-09 13:05 | XMS_ITS | Clinical Summary ---
Author Organization [facility] it Address [address] [place] [address] Care Team Providers Care Russian Language Instructor Name Role Phone Antonia Vela MD Primary Care Provider [phone] Allergies No known active allergies Medications traZODone [...] HPV Routine 01/09/2021 LIPID PANEL Routine 10/22/2020 [facility] MAMMO BI INCL CAD Routine 01/20/2019 4:15 PM EDT Encounter for screening mammogram for malignant neoplasm of breast COLONOSCOPY Routine 02/15/2018 HEPATITIS C SCREENING Routine 05/26/2013 from Last 3 Months or Most Recently Relevant to Health Maintenance Results * Annual BMP Blood Test (02/18/2022) Pathologist [facility] Annual BMP Blood Test abstracted [facility] Provider [facility] Final Result * Cervical Cancer Screening: HPV (01/09/2021) Pathologist [facility] Cervical Cancer Screening: HPV abstracted, negative [facility] Provider [facility] Final Result * Lipid panel (10/22/2020) [facility] LDL/HDL Ratio 0 Comment:abstracted, no inter pretation Triglycerides 0 mg/dL Comment:abstracted, no inter pretation Cholesterol 0 mg/dL Comment:abstracted, no inter pretation HDL 0 mg/dL Comment:abstracted, no inter pretation LDL Cholesterol 0 mg/dL Comment:abstracted, no inter pretation Blood Venous blood specimen / Unknown Result [facility] Provider LAB BLOOD ORDERABLES Karely l [...] XR PROCEDURES Final Result * Colonoscopy (02/15/2018) [facility] Colonoscopy abstracted, no interpretation Anatomical Region Laterality Modality Other Historical Provider HEALTH MAINTENANCE Final Result * Hepatitis C Screening (05/26/2013) [facility] Hepatitis C Screening abstracted Historical Provider HEALTH MAINTENANCE Final Result from Last 3 Months or Most Recently Relevant to Health Maintenance Care Teams Russian Language Instructor Relationship Specialty Start Date End Date Antonia Vela MD [address] [place] [address] PCP - General 12/06/01
== END 2025-01-09 12:09 | disposition home or self-care (01) ==
LOC: HO.HOS 11:27
PROVIDERS: PCP Family Medicine
DX: S52.615A Nondisplaced fracture of left ulna styloid process, initial encounter for closed fracture (principal); S52.532A Colles' fracture of left radius, initial encounter for closed fracture
CPT/HCPCS: 99024

== ENCOUNTER → 2025-01-09 11:32 | Outpatient (BNV) | payer OTHER, SELFPAY | PROVIDERS: PCP Family Medicine; Visit Provider Radiology Diagnostic Radiology | DX: M25.532 Pain in left wrist (principal) | CPT/HCPCS: 73110 ==

== ENCOUNTER 2025-01-16 11:10 | Outpatient (REF) | payer OTHER, SELFPAY ==
--- NOTE | ~2025-01-16 | XR_ITS ---
CLINICAL HISTORY: pain, s p fall 3 view left wrist Comparison: DX/DC/SR - XR WRIST LT MIN 3V - 01/09/25 11:32 EDT DX/SR - XR WRIST LT MIN 3V - 12/12/24 14:45 EDT Findings: Prior plate and screw fixation of the distal radius fracture with intact hardware and alignment. Fracture lines are still visualized extending to the articular surface however, with callus formation. Healing ulnar styloid process fracture. No radiopaque foreign body. IMPRESSION: 1. Prior plate and screw fixation of the healing distal radius fracture with callus formation with intact hardware and alignment. Healing ulnar styloid process fracture. No new fracture is identified. This document has been electronically signed by: Bettie Sandoval MD on 01/16/2025 22:58:54
--- OUTSIDE RECORDS SUMMARY | 2025-01-16 13:23 | XMS_ITS | Clinical Summary ---
Author Organization [facility] it Address [address] [place] [address] Care Team Providers Care Type Proof Reproducer Name Role Phone Antonia Vela MD Primary Care Provider [phone] Allergies No known active allergies Medications traZODone [...] HPV Routine 01/09/2021 LIPID PANEL Routine 10/22/2020 [facility] MAMMO BI INCL CAD Routine 01/20/2019 4:15 PM EDT Encounter for screening mammogram for malignant neoplasm of breast COLONOSCOPY Routine 02/15/2018 HEPATITIS C SCREENING Routine 05/26/2013 from Last 3 Months or Most Recently Relevant to Health Maintenance Results * Annual BMP Blood Test (02/18/2022) Pathologist [facility] Annual BMP Blood Test abstracted [facility] Provider [facility] Final Result * Cervical Cancer Screening: HPV (01/09/2021) Pathologist [facility] Cervical Cancer Screening: HPV abstracted, negative [facility] Provider [facility] Final Result * Lipid panel (10/22/2020) [facility] LDL/HDL Ratio 0 Comment:abstracted, no inter pretation Triglycerides 0 mg/dL Comment:abstracted, no inter pretation Cholesterol 0 mg/dL Comment:abstracted, no inter pretation HDL 0 mg/dL Comment:abstracted, no inter pretation LDL Cholesterol 0 mg/dL Comment:abstracted, no inter pretation Blood Venous blood specimen / Unknown Result [facility] Provider LAB BLOOD ORDERABLES Karely l [...] XR PROCEDURES Final Result * Colonoscopy (02/15/2018) [facility] Colonoscopy abstracted, no interpretation Anatomical Region Laterality Modality Other Historical Provider HEALTH MAINTENANCE Final Result * Hepatitis C Screening (05/26/2013) [facility] Hepatitis C Screening abstracted Historical Provider HEALTH MAINTENANCE Final Result from Last 3 Months or Most Recently Relevant to Health Maintenance Care Teams Type Proof Reproducer Relationship Specialty Start Date End Date Antonia Vela MD [address] [place] [address] PCP - General 12/06/01
== END 2025-01-16 11:11 | disposition home or self-care (01) ==
LOC: HO.HOSX 11:10
PROVIDERS: Visit Provider Physician Assistant
DX: S52.532A Colles' fracture of left radius, initial encounter for closed fracture (principal); M25.532 Pain in left wrist; X58.XXXA Exposure to other specified factors, initial encounter; Y93.9 Activity, unspecified; Y92.9 Unspecified place or not applicable; Y99.9 Unspecified external cause status
CPT/HCPCS: 73110

== ENCOUNTER → 2025-01-16 12:39 | Outpatient (BNV) | payer OTHER, SELFPAY | PROVIDERS: Visit Provider Student in an Organized Health Care Education/Training Program | DX: S52.502D Unspecified fracture of the lower end of left radius, subsequent encounter for closed fracture with routine healing (principal); S52.612D Displaced fracture of left ulna styloid process, subsequent encounter for closed fracture with routine healing | CPT/HCPCS: 73110 ==

== ENCOUNTER 2025-01-16 13:16 | Outpatient (AMB) | payer OTHER, SELFPAY ==
--- NOTE | 2025-01-16 13:40 | A.OFFVIS_ITS ---
Vital Signs 01/16/25 13:40 Height 5 ft Intake Visit Reasons: PO LT distal radius ORIF 12/14/24 AR-cast off Intake Note: Myra is a 64 year old female who is right hand dominant who presents today for a follow up for the left distal radius. Patient states discomfort in the wrist, throbbing pain,Slight tingle. Allergies sulfamethoxazole [From Bactrim] Allergy (Mild, Verified 01/16/25 13:43) Rash trimethoprim [From Bactrim] Allergy (Mild, Verified 01/16/25 13:43) Rash niacin [NIACIN] Allergy (Unknown, Verified 01/16/25 13:43) FLUSH HPI HPI PO LT distal radius ORIF 12/14/24 AR-cast off: Details: Ms. Tamayo is a 64-year-old right-hand dominant female who presents to the office today status post left distal radius ORIF performed on 12/14/[address] Archuleta. At her last appointment with Leighton Cadena PA-C the patient was still experiencing tenderness over the fracture site and therefore was placed into a short-arm cast. The cast was removed all the office today for repeat x- rays to be obtained. [facility] Medical History (Updated 01/09/25 @ 11:47 by DARWIN Trujillo) Distal radius fracture, left (~11/30/24) Fracture of ulnar styloid (~11/30/24) Cough Rash HIV (human immunodeficiency virus infection) Surgical History No pertinent past surgical history Family History Paternal Grandmother Liver cancer Maternal Grandfather Bone cancer Maternal Grandmother Breast cancer Maternal Aunt Breast cancer Social History Household Members: None Housing: Condominium Are you a primary respite care provider to a significant other at home: No Do you presently have visiting nurse or other home services: No Patient Tobacco Use Status: Never used Tobacco Second Hand Smoke Exposure: No service: No Current occupational status: employed Current occupation: works at [employer] Review of Systems Const All systems reviewed & are unremarkable except as noted in HPI and below Physical Exam Extrem Other: Left wrist incision site is clean dry and intact. No surrounding erythema or drainage. No signs of infection. Significant stiffness with attempting any range of motion of the wrist. Lacking about 2 cm from making a closed fist. She is able to demonstrate full finger extension, abduction, adduction, finger cross, okay sign and thumbs-up with mild difficulty. Sensation is intact. Cap refill is brisk. Assessment & Plan Assessment & Plan (1) Distal radius fracture, left: Onset Date: ~11/30/24 Code(s): S52.502A - Unspecified fracture of the lower end of left radius, initial encounter for closed fracture Category: Medical Qualifiers: Encounter type: initial encounter Fracture morphology: Colles' Fracture type: closed Qualified Code(s): S52.532A - Colles' fracture of left radius, initial encounter for closed fracture (2) Fracture of ulnar styloid: Onset Date: ~11/30/24 Code(s): S52.613A - Displaced fracture of unspecified ulna styloid process, initial encounter for closed fracture Category: Medical Qualifiers: Encounter type: initial encounter Fracture alignment: nondisplaced Fracture type: closed Laterality: left Qualified Code(s): S52.615A - Nondisplaced fracture of left ulna styloid process, initial encounter for closed fracture Plan Ms. Tamayo is a 64-year-old right-hand dominant female who presents to the office today status post left distal radius ORIF performed on 12/14/[address] Archuleta. At her last appointment with Leighton Cadena PA-C the patient was still experiencing tenderness over the fracture site and therefore was placed into a short-arm cast. The cast was removed all the office today for repeat x- rays to be obtained. While the office today, the patient was given a Velcro wrist splint off the shelf. She should wear this at all times except for bathing and hand washing. I have also placed an order for occupational therapy to work on gentle range of motion. I have additionally given her an out-of-work note until her follow up. She will follow up in 4 weeks, sooner if needed. X-rays of the left wrist which were obtained while in the office today and were reviewed by me, Martina Leigh PA-C, revealed intact orthopedic hardware with routine healing. Orders: Orders XR wrist LT min 3V Today M25.539 - Pain in unspecified wrist Coding Level of Care Code Global (44170) Diagnoses Distal radius fracture, left S52.532A Encounter type: initial encounter Fracture morphology: Colles' Fracture type: closed Fracture of ulnar styloid S52.615A Encounter type: initial encounter Fracture alignment: nondisplaced Fracture type: closed Laterality: left
== END 2025-01-16 14:07 | disposition home or self-care (01) ==
LOC: HO.HOS 13:16
PROVIDERS: PCP Family Medicine
DX: S52.532A Colles' fracture of left radius, initial encounter for closed fracture (principal); S52.615A Nondisplaced fracture of left ulna styloid process, initial encounter for closed fracture
CPT/HCPCS: 99024

== ENCOUNTER 2025-02-13 14:00 | Outpatient (AMB) | payer OTHER, SELFPAY ==
--- NOTE | 2025-02-13 14:06 | A.OFFVIS_ITS ---
Intake Visit Reasons: PO LT distal radius ORIF 12/14/24 AR-cast off Intake Note: Myra is a 64 year old right hand dominant female who presents today for a post operative appointment s/p Left Distal Radius ORIF 12/14/24. At her last visit she was placed in a velcro wrist brace and given a note to remain out of work. Patient stated that no numbness or tingling to report, that no pain radiating up or down her arm. Patient stated that she has had two visits with occupational therapy and seeing some improvements. Allergies sulfamethoxazole (From Bactrim) Allergy (Mild, Verified 02/13/25 14:13) Rash trimethoprim (From Bactrim) Allergy (Mild, Verified 02/13/25 14:13) Rash niacin (NIACIN) Allergy (Unknown, Verified 02/13/25 14:13) FLUSH HPI HPI PO LT distal radius ORIF 12/14/24 AR-cast off: Details: Myra is a 64 year old right hand dominant female who presents today for a post operative appointment s/p Left Distal Radius ORIF 12/14/24. At her last visit she was placed in a velcro wrist brace and given a note to remain out of work. Patient stated that no numbness or tingling to report, that no pain radiating up or down her arm. Patient stated that she has had two visits with occupational therapy and seeing some improvements. [facility] Medical History (Updated 01/09/25 @ 11:47 by DARWIN Trujillo) Distal radius fracture, left (~11/30/24) Fracture of ulnar styloid (~11/30/24) Cough Rash HIV (human immunodeficiency virus infection) Surgical History No pertinent past surgical history Family History Paternal Grandmother Liver cancer Maternal Grandfather Bone cancer Maternal Grandmother Breast cancer Maternal Aunt Breast cancer Social History Household Members: None Housing: Condominium Are you a primary child care group leader to a significant other at home: No Do you presently have visiting nurse or other home services: No Patient Tobacco Use Status: Never used Tobacco Second Hand Smoke Exposure: No service: No Current occupational status: employed Current occupation: works at [employer] Review of Systems Const All systems reviewed & are unremarkable except as noted in HPI and below Physical Exam Extrem Other: Left wrist incision site is clean dry and intact. No surrounding erythema or drainage. No signs of infection. Significant stiffness with attempting any range of motion of the wrist. Lacking about 2 cm from making a closed fist. She is able to demonstrate full finger extension, abduction, adduction, finger c ross, okay sign and thumbs-up with mild difficulty. Sensation is intact. Cap refill is brisk. Results Reviewed Results Reviewed: X-rays obtained in the office today and independently reviewed by me, Leighton Cadena PA-C, demonstrate surgically corrected fracture of the left distal radius with all orthopedic hardware in place and with evidence of interval bony healing Assessment & Plan Assessment & Plan (1) Distal radius fracture, left: Onset Date: ~11/30/24 Code(s): S52.502A - Unspecified fracture of the lower end of left radius, initial encounter for closed fracture Category: Medical Qualifiers: Encounter type: initial encounter Fracture morphology: Colles' Fracture type: closed Qualified Code(s): S52.532A - Colles' fracture of left radius, initial encounter for closed fracture (2) Fracture of ulnar styloid: Onset Date: ~11/30/24 Code(s): S52.613A - Displaced fracture of unspecified ulna styloid process, initial encounter for closed fracture Category: Medical Qualifiers: Encounter type: initial encounter Fracture alignment: nondisplaced Fracture type: closed Laterality: left Qualified Code(s): S52.615A - Nondisplaced fracture of left ulna styloid process, initial encounter for closed fracture Plan Ms. Tamayo is a 64-year-old right-hand dominant female who presents to the office today status post left distal radius ORIF performed on 12/14/[address] Archuleta. Patient reports that she is feeling quite well at this time, and has improved significantly. At this time, I feel the patient is healing quite well, and can readily progressed through the healing process of the wrist from her fra cture. The cast was removed all the office today for repeat x-rays to be obtained. Patient was advised to only wear the Velcro wrist splint with daytime activities at this time. I have also placed an order for occupational therapy to work on gentle range of motion. I have additionally given her an out-of-work note until her follow up. She will follow up in 4 weeks, sooner if needed. Orders: Orders XR wrist LT min 3V 02/13/25 M25.532 - Pain in left wrist Coding Level of Care Code Global (48902) Diagnoses Distal radius fracture, left S52.532A Encounter type: initial encounter Fracture morphology: Colles' Fracture type: closed Fracture of ulnar styloid S52.615A Encounter type: initial encounter Fracture alignment: nondisplaced Fracture type: closed Laterality: left
--- OUTSIDE RECORDS SUMMARY | 2025-02-13 14:51 | XMS_ITS | Clinical Summary ---
Author Organization [facility] it Address [address] [place] [address] Care Team Providers Care Tare Man Name Role Phone Antonia Vela MD Primary Care Provider [phone] Allergies No known active allergies Medications traZODone [...] ( season) 2024 12/18/2020, 11/27/2020 Influenza Vaccine (#1) 2025 , 05/08/2013, 05/10/2012, Additional history exists Cholesterol Screening [...] HPV Routine 01/09/2021 LIPID PANEL Routine 10/22/2020 SCR MAMMO BI INCL CAD Routine 01/20/2019 4:15 PM EDT Encounter for screening mammogram for malignant neoplasm of breast COLONOSCOPY Routine 02/15/2018 HEPATITIS C SCREENING Routine 05/26/2013 from Last 3 Months or Most Recently Relevant to Health Maintenance Results * Annual BMP Blood Test (02/18/2022) Annual BMP Blood Test abstracted [facility] Provider [facility] Final Result * Cervical Cancer Screening: HPV (01/09/2021) [facility] Cervical Cancer Screening: HPV abstracted, negative [facility] Provider [facility] Final Result * Lipid panel (10/22/2020) [facility] LDL/HDL Ratio 0 Comment:abstracted, no inter pretation Triglycerides 0 mg/dL Comment:abstracted, no inter pretation Cholesterol 0 mg/dL Comment:abstracted, no inter pretation HDL 0 mg/dL Comment:abstracted, no inter pretation LDL Cholesterol 0 mg/dL Comment:abstracted, no inter pretation Blood Venous blood specimen / Unknown [facility] Provider LAB BLOOD ORDERABLES Karely l [...] reviewed with CAD and compared to previous. The breasts are composed of fatty and fibroglandular tissue. No architectural distortion or suspicious calcifications are identified. [...] cancer risk category Low (<15%) Procedure Note eFlecia Singh - 07/28/2022 This is a summary [...] XR PROCEDURES Final Result * Colonoscopy (02/15/2018) Colonoscopy abstracted, no interpretation Anatomical Region Laterality Modality Other Result [facility] Historical Provider HEALTH MAINTENANCE Final Result * Hepatitis C Screening (05/26/2013) Hepatitis C Screening abstracted Historical Provider HEALTH MAINTENANCE Final Result from Last 3 Months or Most Recently Relevant to Health Maintenance Care Teams Tare Man Relationship Specialty Start Date End Date Antonia Vela MD [address] [place] [address] PCP - General 12/06/01
== END 2025-02-13 14:52 | disposition home or self-care (01) ==
LOC: HO.HOS 14:01
PROVIDERS: PCP Family Medicine
DX: S52.532A Colles' fracture of left radius, initial encounter for closed fracture (principal); S52.615A Nondisplaced fracture of left ulna styloid process, initial encounter for closed fracture
CPT/HCPCS: 99024

== ENCOUNTER 2025-02-13 14:00 | Outpatient (REF) | payer OTHER, SELFPAY ==
--- NOTE | ~2025-02-13 | XR_ITS ---
EXAMINATION: XR WRIST, LEFT CLINICAL INFORMATION: M25.532 - Pain in left wrist COMPARISON: January 16, 2025. TECHNIQUE: PA, lateral, and oblique views of the left wrist. FINDINGS: There is loosening surrounding the metallic plate at the distal epiphysis/metaphysis of the radius. No gross callus formation. Intact hardware endplate distal metaphysis and epiphysis and diaphysis of the radius. Osteopenia versus osteoporosis. XR/XR wrist LT min 3V IMPRESSION: Status post open reduction internal fixation of a distal radial fracture with the concerning loosening at the distal epiphysis/metaphysis of the left radius. Electronically signed by: Derek Zhang MD 02/13/2025 02:27 PM EDT
== END 2025-02-13 14:01 | disposition home or self-care (01) ==
LOC: HO.HOSX 14:00
PROVIDERS: PCP Family Medicine
DX: S52.532D Colles' fracture of left radius, subsequent encounter for closed fracture with routine healing (principal); S52.615D Nondisplaced fracture of left ulna styloid process, subsequent encounter for closed fracture with routine healing
CPT/HCPCS: 73110

== ENCOUNTER → 2025-02-13 14:09 | Outpatient (BNV) | payer OTHER, SELFPAY | PROVIDERS: PCP Family Medicine; Visit Provider Radiology Diagnostic Radiology | DX: T84.123A Displacement of internal fixation device of bone of left forearm, initial encounter (principal) | CPT/HCPCS: 73110 ==

== ENCOUNTER 2025-02-19 13:16 | Outpatient (REF) | payer OTHER, SELFPAY ==
--- OUTSIDE RECORDS SUMMARY | 2025-02-19 14:21 | XMS_ITS | Clinical Summary ---
Author Organization [facility] it Address [address] [place] [address] Care Team Providers Care Log Cooker Name Role Phone Antonia Vela MD Primary Care Provider [phone] Allergies No known active allergies Medications traZODone [...] Test (02/18/2022) Annual BMP Blood Test abstracted [facility] Provider [facility] Final Result * Cervical Cancer Screening: HPV (01/09/2021) [facility] Cervical Cancer Screening: HPV abstracted, negative [facility] Provider [facility] Final Result * Lipid panel (10/22/2020) [facility] LDL/HDL Ratio 0 Comment:abstracted, no inter pretation Triglycerides 0 mg/dL Comment:abstracted, no inter pretation Cholesterol 0 mg/dL Comment:abstracted, no inter pretation HDL 0 mg/dL Comment:abstracted, no inter pretation LDL Cholesterol 0 mg/dL Comment:abstracted, no inter pretation Blood Venous blood specimen / Unknown [facility] Provider LAB BLOOD ORDERABLES Karely l [...] interpretation Anatomical Region Laterality Modality Other Result [facility] Historical Provider HEALTH MAINTENANCE Final Result * Hepatitis C Screening (05/26/2013) Hepatitis C Screening abstracted Historical Provider HEALTH MAINTENANCE Final Result from Last 3 Months or Most Recently Relevant to Health Maintenance Care Teams Log Cooker Relationship Specialty Start Date End Date Antonia Vela MD [address] [place] [address] PCP - General 12/06/01
[2025-02-19 15:11] LABS: MANUAL DIFF FLAG NO
[2025-02-19 15:47] LABS: Hematocrit 37.8 % (37.0-47.0); Hemoglobin 12.3 g/dl (12.0-16.0); Imm Gran Abs Auto 0.01 X10*3/uL (0.00-0.03); Imm Gran Pct Auto 0.3 % (0.0-0.4); Lymphocytes Absolute Auto 1.0 X10*3/uL (1.2-4.9); Mean Corpuscular HGB Conc 32.5 g/dl (31.0-35.0); Mean Corpuscular Hemoglobin 32.0 pg (27.0-33.0); Mean Corpuscular Volume 98.4 fL (80.0-98.0); NRBC Abs Auto 0.000 X10*3/uL (0.0-0.012); NRBC Pct Auto 0.0 /100WBC (0.0-0.2); Platelet Count 191 X10*3/uL (160-400); Red Blood Count 3.84 X10*6/uL (4.20-5.50); White Blood Count 3.9 X10*3/uL (4.8-10.8)
[2025-02-19 16:03] LABS: Alanine Aminotransferase 8 U/L (0-31); Albumin Level 4.1 g/dL (3.5-5.0); Alkaline Phosphatase 78 U/L (39-117); Anion Gap 10 (12-20); Aspartate Amino Transferase 25 U/L (5-31); Blood Urea Nitrogen 18 mg/dL (9-16); Calcium 8.8 mg/dL (8.4-10.2); Carbon Dioxide 28 mmol/L (22-29); Chloride 106 mmol/L (96-108); Cholesterol 231 mg/dL (<200); Estimated Glomerular Filt Rate > 60; HDL Cholesterol 77 mg/dL (>40); Potassium 4.2 mmol/L (3.3-5.1); Sodium 140 mmol/L (135-145); Total Protein 6.8 g/dL (6.5-8.0); Triglycerides 98 mg/dL (<150)
[2025-02-19 17:46] LABS: Reflex LDLD? No
[2025-02-20 08:08] LABS: Syphilis Screen Nonreactive (Nonreactive)
[2025-02-20 08:22] LABS: ~HepC Num1 0.25 S/CO (0.00-0.79); ~Hepatitis C Antibody Nonreactive (Nonreactive)
[2025-02-20 15:49] LABS: HIV RNA PCR Qn Copies 57 copies/mL (NOT DETECTED); HIV RNA PCR Qn Log Copies 1.76 (NOT DETECTED)
[2025-02-22 06:53] LABS: TS Negative Control Passed; TS Panel A 0; TS Panel B 0; TS Positive Control Passed; TSpotTB Negative (Negative)
[2025-02-23 14:59] LABS: Absolute CD3 Count 854 cells/uL (840-3060); Absolute CD8 Count 601 cells/uL (180-1170); Percent CD3 Cells 68 % (57-85); Percent CD8 Cells 48 % (12-42)
== END 2025-02-19 13:17 | disposition home or self-care (01) ==
LOC: HO.CHCLDS 13:16
PROVIDERS: Visit Provider Internal Medicine
DX: Z21 Asymptomatic human immunodeficiency virus [HIV] infection status (principal); Z11.59 Encounter for screening for other viral diseases; Z11.1 Encounter for screening for respiratory tuberculosis; Z11.3 Encounter for screening for infections with a predominantly sexual mode of transmission
CPT/HCPCS: 36415; 80053; 80061; 85025; 86359; 86360; 86481; 86780; 86803; 87536

== ENCOUNTER 2025-03-16 13:01 | Outpatient (AMB) | payer OTHER, SELFPAY ==
--- OUTSIDE RECORDS SUMMARY | 2025-03-16 13:03 | XMS_ITS | Clinical Summary ---
Author Organization [facility] it Address [address] [place] [address] Care Team Providers Care Heel Lift Gouger Name Role Phone Antonia Vela MD Primary Care Provider [phone] Allergies No known active allergies Medications traZODone [...] - Td or Tdap) 05/18/2022 05/18/2012, 05/09/2006 HIV Screening 07/08/2022 Social Influencers of Health Screening 07/08/2022 Colorectal Cancer Screening: Colonoscopy 02/15/2023 02/15/2018 Hypertension/CHF/CAD Annual BMP Blood Test 02/18/2023 02/18/2022 COVID-19 Vaccine ( season) 2024 12/18/2020, 11/27/2020 Depression Screening 08/09/2024 Influenza Vaccine (#1) 2025 0, 05/08/2013, 05/10/2012, Additional history exists Cholesterol Screening [...] Test (02/18/2022) Annual BMP Blood Test abstracted [facility] Provider [facility] Final Result * Cervical Cancer Screening: HPV (01/09/2021) [facility] Cervical Cancer Screening: HPV abstracted, negative [facility] Provider [facility] Final Result * Lipid panel (10/22/2020) [facility] LDL/HDL Ratio 0 Comment:abstracted, no inter pretation Triglycerides 0 mg/dL Comment:abstracted, no inter pretation Cholesterol 0 mg/dL Comment:abstracted, no inter pretation HDL 0 mg/dL Comment:abstracted, no inter pretation LDL Cholesterol 0 mg/dL Comment:abstracted, no inter pretation Blood Venous blood specimen / Unknown [facility] Provider LAB BLOOD ORDERABLES Karely l [...] interpretation Anatomical Region Laterality Modality Other Result [facility] Historical Provider HEALTH MAINTENANCE Final Result * Hepatitis C Screening (05/26/2013) Hepatitis C Screening abstracted Historical Provider HEALTH MAINTENANCE Final Result from Last 3 Months or Most Recently Relevant to Health Maintenance Care Teams Heel Lift Gouger Relationship Specialty Start Date End Date Antonia Vela MD [address] [place] [address] PCP - General 12/06/01
--- NOTE | 2025-03-16 13:06 | A.OFFVIS_ITS ---
Vital Signs 03/16/25 13:11 Height 5 ft Handedness Right Intake Visit Reasons: PO: left distal radius ORIF 12/14/24 AR ROM check Intake Note: Myra is a 64 year old right hand dominant female who presents today post- operatively status post Left Distal Radius ORIF, DOS: 12/14/[address] Archultea. At her last visit, she was transitioned to a velcro wrist brace to wear with daytime activities. She was referred to occupational therapy to work on gentle range of motion. She was also given an out-of-work note until her follow up. Patient reports she has only wears her brace with driving or if she goes into the store. Reports she has started occupational therapy and this has been helping her. Her ROM has improved but she is unsure about her strength. Says putting a plastic plate in the microwave and this causes pain. After her OT visits she says she has some discomfort. Denies numbness and tingling. She wants to finish OT before going back to work, she usually works 2 days at home and 3 days in office at [employer]. Allergies sulfamethoxazole (From Bactrim) Allergy (Mild, Verified 03/16/25 13:25) Rash trimethoprim (From Bactrim) Allergy (Mild, Verified 03/16/25 13:25) Rash niacin (NIACIN) Allergy (Unknown, Verified 03/16/25 13:25) FLUSH HPI HPI PO: left distal radius ORIF 12/14/24 AR ROM check: Details: Myra is a 64 year old right hand dominant female who presents today post- operatively status post Left Distal Radius ORIF, DOS: 12/14/[address] Archuleta. At her last visit, she was transitioned to a velcro wrist brace to wear with daytime activities. She was referred to occupational therapy to work on gentle range of motion. She was also given an out-of-work note until her follow up. Patient reports she has only wears her brace with driving or if she goes into the store. Reports she has started occupational therapy and this has been helping her. Her ROM has improved but she is unsure about her strength. Says putting a plastic plate in the microwave and this causes pain. After her OT visits she says she has some discomfort. Denies numbness and tingling. She wants to finish OT before going back to work, she usually works 2 days at home and 3 days in office at [employer]. [facility] Medical History (Updated 01/09/25 @ 11:47 by DARWIN Trujillo) Distal radius fracture, left (~11/30/24) Fracture of ulnar styloid (~11/30/24) Cough Rash HIV (human immunodeficiency virus infection) Surgical History (Updated 03/16/25 @ 13:25 by DARWIN Trujillo) History of open reduction and internal fixation (ORIF) procedure No pertinent past surgical history Family History Paternal Grandmother Liver cancer Maternal Grandfather Bone cancer Maternal Grandmother Breast cancer Maternal Aunt Breast cancer Social History Household Members: None Housing: Condominium Are you a primary hospice care transitions coordinator to a significant other at home: No Do you presently have visiting nurse or other home services: No Patient Tobacco Use Status: Never used Tobacco Second Hand Smoke Exposure: No service: No Current occupational status: employed Current occupation: works at [employer] Review of Systems Const All systems reviewed & are unremarkable except as noted in HPI and below Physical Exam Extrem Other: Left wrist incision site is clean dry and intact. No surrounding erythema or drainage. No signs of infection. No significant stiffness with attempting any range of motion of the wrist. Patient is able to make a closed fist. Lacking approximately 10 degrees of supination She is able to demonstrate full finger extension, abduction, adduction, finger cross, okay sign and thumbs-up with mild difficulty. Sensation is intact. Cap refill is brisk. Assessment & Plan Assessment & Plan (1) Distal radius fracture, left: Onset Date: ~11/30/24 Code(s): S52.502A - Unspecified fracture of the lower end of left radius, initial encounter for closed fracture Category: Medical Qualifiers: Encounter type: initial encounter Fracture morphology: Colles' Fracture type: closed Qualified Code(s): S52.532A - Colles' fracture of left radius, initial encounter for closed fracture (2) Fracture of ulnar styloid: Onset Date: ~11/30/24 Code(s): S52.613A - Displaced fracture of unspecified ulna styloid process, initial encounter for closed fracture Category: Medical Qualifiers: Encounter type: initial encounter Fracture alignment: nondisplaced Fracture type: closed Laterality: left Qualified Code(s): S52.615A - Nondisplaced fracture of left ulna styloid process, initial encounter for closed fracture Plan Ms. Tamayo is a 64-year-old right-hand dominant female who presents to the office today status post left distal radius ORIF performed on 12/14/[address] Archuleta. Patient reports that she is feeling quite well at this time, and has improved significantly. At this time, I feel the patient is healing quite well, and can readily progressed through the healing process of the wrist from her fracture. The cast was removed all the office today for repeat x-rays to be obtained. Patient was advised to only wear the Velcro wrist splint with high-risk daytime activities at this time. Patient has been provided with a note to blood bank worker until follow-up, we will explore returning her back to work full duty at next visit. She will follow up in 4 weeks, sooner if needed. Coding Level of Care Code Global (25767) Diagnoses Distal radius fracture, left S52.532A Encounter type: initial encounter Fracture morphology: Colles' Fracture type: closed Fracture of ulnar styloid S52.615A Encounter type: initial encounter Fracture alignment: nondisplaced Fracture type: closed Laterality: left
== END 2025-03-16 13:41 | disposition home or self-care (01) ==
PROVIDERS: PCP Family Medicine
DX: S52.532A Colles' fracture of left radius, initial encounter for closed fracture (principal); S52.615A Nondisplaced fracture of left ulna styloid process, initial encounter for closed fracture
CPT/HCPCS: 99213

== ENCOUNTER 2025-04-09 23:38 | Emergency (ER) | payer OTHER, SELFPAY ==
--- NOTE | 2025-04-09 | ECG_ITS ---
Test Reason : PALPITATIONS Blood Pressure : */* mmHG Vent. Rate : 87 BPM Atrial Rate : 87 BPM P-R Int : 128 ms QRS Dur : 76 ms QT Int : 364 ms P-R-T Axes : 20 -37 -13 degrees QTcB Int : 438 ms Normal sinus rhythm Left axis deviation Nonspecific ST abnormality Abnormal ECG No previous ECGs available Referred By: Generic ED Physician Electronically Signed By: Benji Ruiz
[2025-04-09 23:45] VITALS: BP 217/110; PULSE 83; RESP 18; TEMP 36.9; O2SAT 98; BMI 28.9
[2025-04-10 01:09] LABS: Hematocrit 39.7 % (37.0-47.0); Hemoglobin 14.7 g/dl (12.0-16.0); Mean Corpuscular HGB Conc 37.0 g/dl (31.0-35.0); Mean Corpuscular Hemoglobin 33.2 pg (27.0-33.0); Mean Corpuscular Volume 89.6 fL (80.0-98.0); NRBC Abs Auto 0.000 X10*3/uL (0.0-0.012); NRBC Pct Auto 0.0 /100WBC (0.0-0.2); Platelet Count 226 X10*3/uL (160-400); Red Blood Count 4.43 X10*6/uL (4.20-5.50); White Blood Count 6.9 X10*3/uL (4.8-10.8)
[2025-04-10 01:14] LABS: INTERNATIONAL NORM RATIO 1.0 (0.9-1.1); Prothrombin Time 11.1 SEC (10.9-12.4)
[2025-04-10 01:15] LABS: Appearance Urine Clear; Glucose Urine UA Negative (Negative); PH 6.5 (5.0-9.0); Specific Gravity - Urine <= 1.005 (1.005-1.025)
[2025-04-10 01:24] LABS: Alanine Aminotransferase 9 U/L (0-31); Albumin Level 4.7 g/dL (3.5-5.0); Alkaline Phosphatase 98 U/L (39-117); Anion Gap 17 (12-20); Aspartate Amino Transferase 29 U/L (5-31); Blood Urea Nitrogen 15 mg/dL (9-16); Calcium 9.5 mg/dL (8.4-10.2); Carbon Dioxide 20 mmol/L (22-29); Chloride 99 mmol/L (96-108); Creatinine Clr Calc Pharmacy 66.6; Estimated Glomerular Filt Rate > 60; Potassium 3.5 mmol/L (3.3-5.1); Sodium 132 mmol/L (135-145); Total Protein 7.9 g/dL (6.5-8.0)
[2025-04-10 01:41] LABS: Troponin-I High Sensitivity < 2.7 ng/L (<3.5-17.0)
--- OUTSIDE RECORDS SUMMARY | 2025-04-10 02:01 | XMS_ITS | Clinical Summary ---
Author Organization [facility] it Address [address] [place] [address] Care Team Providers Care Asbestos Worker Helper Name Role Phone Antonia Vela MD Primary Care Provider [phone] Allergies No known active allergies Medications traZODone [...] Test (02/18/2022) Annual BMP Blood Test abstracted [facility] Provider [facility] Final Result * Cervical Cancer Screening: HPV (01/09/2021) [facility] Cervical Cancer Screening: HPV abstracted, negative [facility] Provider [facility] Final Result * Lipid panel (10/22/2020) [facility] LDL/HDL Ratio 0 Comment:abstracted, no inter pretation Triglycerides 0 mg/dL Comment:abstracted, no inter pretation Cholesterol 0 mg/dL Comment:abstracted, no inter pretation HDL 0 mg/dL Comment:abstracted, no inter pretation LDL Cholesterol 0 mg/dL Comment:abstracted, no inter pretation Blood Venous blood specimen / Unknown [facility] Provider LAB BLOOD ORDERABLES Karely [...] Anatomical Region Laterality Modality Other Result [facility] Historical Provider HEALTH MAINTENANCE Final Result * Hepatitis C Screening (05/26/2013) Hepatitis C Screening abstracted Historical Provider HEALTH MAINTENANCE Final Result from Last 3 Months or Most Recently Relevant to Health Maintenance Care Teams Asbestos Worker Helper Relationship Specialty Start Date End Date Antonia Vela MD [address] [place] [address] PCP - General 12/06/01
[2025-04-10 02:16] VITALS: BP 167/102; PULSE 86; RESP 16; TEMP 36.4; O2SAT 97
--- NOTE | 2025-04-10 04:39 | ED_ITS ---
HPI - General Adult General Chief complaint: Arrhythmia/Palpitations Stated complaint: took high dosage of medication fast heart rate Time Seen by Provider: 04/10/25 03:12 Source: patient Mode of arrival: ambulatory Limitations: no limitations History of Present Illness ED Provider: Dr. Minerva Patterson HPI narrative: 65-year-old female with history of HIV presenting with epigastric abdominal pain, poor oral intake, feeling dehydrated as well as tingling on the top of her head ongoing for the last 24 hours or so after taking it a high dose of Ozempic. States that she had been on this drug previously and stopped using it but was recently restarted at a higher dose. Has been using it for weight loss. Did not call the doctor that prescribes it to her before coming to the emergency room. Tonight she decided to drink some Pedialyte to see if she could feel more hydrated however, after drinking ?several gulps of this electrolyte solution? she began to feel warm and tingly on the top of her head. States that this concerned her more than anything and she began to feel more anxious. Denies recent illness including fever, cough or cold-type symptoms, chest pain, difficulty breathing, diarrhea, lower extremity edema or pain, known sick contacts or travel. Related Data Home Medications ?Medication ?Instructions ?Recorded ?Confirmed trazodone 100 mg tablet 2.5 tab PO BEDTIME PRN insom anum 04/28/22 05/28/22 clonazepam 0.5 mg tablet 1 tab PO DAILY PRN anxiety 1 05/28/22 alendronate 70 mg tablet 70 mg PO QWEEK 06/07/24 cholecalciferol (vitamin D3) 25 25 mcg PO DAILY mcg (1,000 unit) tablet Previous Rx's ?Medication ?Instructions ?Recorded dolutegravir 50 mg-lamivudine 300 1 tab PO DAILY 30 da ys #30 tabs 06/10/22 mg tablet (Dovato) bisacodyl 5 mg tablet,delayed 10 mg (2 x 5 mg) PO BEDT SONAL 2 days 06/07/24 release (Dulcolax (bisacodyl)) #4 tabs peg 3350-electrolytes 236 240 ml PO Q10M 1 day #4,000 mL 06/07/24 gram-22.74 gram-6.74 gram-5.86 gram solution (Golytely) ibuprofen 600 mg tablet 600 mg PO Q8H PRN pain #30 t abs 12/14/24 ondansetron 4 mg disintegrating 4 mg PO Q8H PRN nausea and 04/10/25 tablet vomiting #10 tabs Allergies Allergy/AdvReac Type Severity Reaction Status Date / Time sulfamethoxazole (From Allergy Mild Rash Verified 04/09/25 23:49 Bactrim) trimethoprim (From Bactrim) Allergy Mild Rash Verified 04/09/25 23:49 niacin (NIACIN) Allergy Unknown FLUSH Verified 04/09/25 23:49 Review of Systems 2 Review of Systems: as per HPI, full review of systems performed and negative but for the above mentioned pertinent positives and negatives. [facility] Past Medical History Medical History Distal radius fracture, left (~11/30/24) Fracture of ulnar styloid (~11/30/24) Cough Rash HIV (human immunodeficiency virus infection) Surgical History History of open reduction and internal fixation (ORIF) procedure No pertinent past surgical history Family History Family History Paternal Grandmother Liver cancer Maternal Grandfather Bone cancer Maternal Grandmother Breast cancer Maternal Aunt Breast cancer Social History Social History Household Members: None Housing: Condominium Are you a primary career development coordinator/teacher to a significant other at home: No Do you presently have visiting nurse or other home services: No Patient Tobacco Use Status: Never used Tobacco Smoked in Last 30 Days: No Second Hand Smoke Exposure: No Use of substances other than those prescribed or required for medical reasons: No Advance Directives: No Advance Directives Information Provided: Yes Patient : No service: No Current occupational status: employed Current occupation: works at [employer] ,two [employer] healthy Physical Exam ED Exam Exam: GENERAL: Anxious, tearful. SKIN: Normal skin color for ethnicity, warm, dry, intact, no rashes noted. HEENT: Normocephalic, atraumatic, no stridor, posterior oropharynx nonerythematous, dentition intact, EOMI. NECK: Soft, supple, full ROM, midline structures nontender, no step-offs, no deformities, no lymphadenopathy. CHEST: Heart regular tachycardia, no murmurs, symmetric chest rise and fall, no crepitus. PULMONARY: Clear to auscultation bilaterally, no labored breathing, no wheezes/rhales/ rhonchi. ABDOMINAL: Soft, nondistended, nontender, positive bowel sounds in all quadrants. : Deferred. MUSCULOSKELETAL: Normal tone, full range of motion, no deformities, no peripheral edema. NEURO: Alert and oriented x3, CN II through XII intact, equal strength and sensation bilateral upper and lower extremities, no focal neurologic deficits. PSYCHIATRIC: Anxious affect, tearful, fluid speech, good eye contact and appropriate demeanor. Vital Signs: Vital Signs - 24 hr 04/09/25 23:45 04/10/25 02:16 Temperature 98.5 F 97.6 F Pulse Rate 83 86 Respiratory Rate 18 16 Blood Pressure 217/110 H 167/102 H Pulse Oximetry 98 97 Oxygen Delivery Method Room Air BiPAP Room Air BMI result Body Mass Index 28.9 Medications Administered Discontinued Medications Generic Name Dose Route Start Last Admin Trade Name Freq PRN Reason Stop Dose Admin Ondansetron HCl 4 mg 04/10/25 04:36 04/10/25 04:51 Ondansetron Odt 4 Mg Tab.Rapdis TRANSLINGU 04/10/25 04:37 4 mg ONCE ONE Administration Medical Decision Making Medical Decision Making MDM Narrative: 65-year-old female with history of HIV presenting with tingling sensation on the top of her head and nausea ongoing since she restarted GLP 1 inhibitor. Differential diagnosis includes medication side effect, adverse drug reaction, viral syndrome, gastroenteritis, electrolyte abnormality, biliary pathology, among others. Patient is hemodynamically stable here in the emergency department though she was initially rather hypertensive. We had an extensive discussion regarding the use of these GLP 1 inhibitors and their side effects. She does not have diabetes. She is not significantly dehydrated. No electrolyte abnormalities. Tolerating PO after zofran here in the ED. Provided with Rx for same. Using shared decision making, plan for discharge home to follow-up with primary care and/or specialist.? Patient understands and agrees with plan for discharge.? Discharged home in stable condition. Differential Diagnosis Differential Diagnoses: The differential diagnosis associated with the presentation includes (as above) Admission/Observation Consideration of admission/observation: Escalation of care including admission/observation considered Lab Data MDM Lab Attestation statement: I reviewed the patient's lab results. 04/10/25 00:56 04/10/25 00:56 Labs: Lab Results 04/10/25 04/10/25 Range/Units 00:56 01:06 WBC 6.9 (4.8-10.8) X10*3/uL RBC 4.43 (4.20-5.50) X10*6/uL Hgb 14.7 (12.0-16.0) g/dl Hct 39.7 (37.0-47.0) % MCV 89.6 (80.0-98.0) fL MCH 33.2 H (27.0-33.0) pg MCHC 37.0 H (31.0-35.0) g/dl RDW 11.9 (11.0-16.0) % Plt Count 226 (160-400) X10*3/uL MPV 9.6 (9.4-12.3) fL Absolute Nucleated RBC 0.000 (0.0-0.012) X10*3/uL Nucleated RBC % (auto) 0.0 (0.0-0.2) /100WBC PT 11.1 (10.9-12.4) SEC INR 1.0 (0.9-1.1) Sodium 132 L (135-145) mmol/L Potassium 3.5 (3.3-5.1) mmol/L Chloride 99 (96-108) mmol/L Carbon Dioxide 20 L (22-29) mmol/L Anion Gap 17 (12-20) BUN 15 (9-16) mg/dL Creatinine 0.73 (0.5-1.4) mg/dL Estim Creat Clear Calc 66.6 Estimated GFR > 60 Random Glucose 102 (60-115) mg/dL Calcium 9.5 D (8.4-10.2) mg/dL Total Bilirubin 1.0 (0.0-1.0) mg/dL AST 29 (5-31) U/L ALT 9 (0-31) U/L Alkaline Phosphatase 98 (39-117) U/L Troponin I High Sens < 2.7 (<3.5-17.0) ng/L Total Protein 7.9 (6.5-8.0) g/dL Albumin 4.7 (3.5-5.0) g/dL Urine Color Yellow Urine Appearance Clear Urine pH 6.5 (5.0-9.0) Ur Specific [place] <= 1.005 (1.005-1.025) Urine Protein Negative (Neg-Trace) mg/dL Urine Glucose (UA) Negative (Negative) mg/dL Urine Ketones Trace (Negative) mg/dL Urine Blood Negative (Negative) Urine Nitrite Negative (Negative) Ur Leukocyte Esterase Negative (Negative) Independent Interpretation I performed an independent interpretation of an: EKG Prescription Management I considered prescription management with: Other (antiemetics) Chronic Conditions Patient?s care impacted by: Other (HIV) Discharge Plan Discharge Clinical Impression: Adverse drug effect, Paresthesias Patient Disposition: Home, Self-Care Instructions: Paresthesia (ED) Additional Instructions: Follow-up with your primary care doctor regarding continuing Ozempic. Return to the emergency department with any new or worsening symptoms including: Worsening tingling in your head or legs, fevers greater than 100?, inability to tolerate food or drink, chest pain, difficulty breathing, any new symptom that concerns you. Call 911 with any medical emergency. Use Zofran for nausea. You can take this up to 3 times a day. Prescriptions: New ondansetron 4 mg tablet,disintegrating 4 mg PO Q8H PRN (Reason: nausea and vomiting) Qty: 10 0RF No Action trazodone 100 mg tablet 2.5 tab PO BEDTIME PRN (Reason: insomnia) clonazepam 0.5 mg tablet 1 tab PO DAILY PRN (Reason: anxiety) ibuprofen 600 mg tablet 600 mg PO Q8H PRN (Reason: pain) Qty: 30 0RF Dovato 50-300 mg tablet 1 tab PO DAILY 30 Days Qty: 30 5RF cholecalciferol (vitamin D3) 25 mcg (1,000 unit) tablet 25 mcg PO DAILY peg 3350-electrolytes [Golytely] 236-22.74-6.74 -5.86 gram recon soln 240 ml PO Q10M 1 Days Qty: 4000 0RF Rx Instructions: until fecal effluent is clear; do not exceed a total volume of 2,000 mL alendronate 70 mg tablet 70 mg PO QWEEK bisacodyl [Dulcolax (bisacodyl)] 5 mg tablet,delayed release (DR/EC) 10 mg PO BEDTIME 2 Days Qty: 4 0RF Interventions: ED Discharge Assessment Last Done: 04/10/25 05:33 Discharge Date/Time: 04/10/25 05:34 Print Language: Northern Irish
[2025-04-10 05:33] VITALS: BP 167/102; PULSE 86; RESP 16; TEMP 36.4; O2SAT 97
== END 2025-04-10 05:34 | disposition home or self-care (01) ==
PROVIDERS: Emergency Provider Emergency Medicine; PCP Family Medicine
DX: R20.2 Paresthesia of skin (principal); T50.3X5A Adverse effect of electrolytic, caloric and water-balance agents, initial encounter; Y92.9 Unspecified place or not applicable; R00.2 Palpitations; R10.13 Epigastric pain; B20 Human immunodeficiency virus [HIV] disease; Z79.899 Other long term (current) drug therapy
CPT/HCPCS: 36415; 80053; 81003; 84484; 85027; 85610; 93005; 99283; 99284

== ENCOUNTER → 2025-04-09 | Outpatient (BNV) | payer OTHER, SELFPAY | PROVIDERS: Emergency Provider Emergency Medicine; PCP Family Medicine; Visit Provider Internal Medicine Cardiovascular Disease | DX: R94.31 Abnormal electrocardiogram [ECG] [EKG] (principal); R00.2 Palpitations | CPT/HCPCS: 93010 ==

== ENCOUNTER 2025-04-17 14:13 | Outpatient (REF) | payer OTHER, SELFPAY ==
--- NOTE | ~2025-04-17 | XR_ITS ---
EXAMINATION: XR WRIST, LEFT CLINICAL INFORMATION: M25.532 - Pain in left wrist COMPARISON: February 13 and January 09, 2025 TECHNIQUE: PA, lateral, and oblique views of the left wrist. FINDINGS: Volar Plate and screws fix a distal radial fracture. Hardware is intact. There is diffuse osteopenia. There has been interval remodeling and increasing density of callus proximal to the base of radial styloid. There is continued remodeling of the ulnar styloid fracture. XR/XR wrist LT min 3V IMPRESSION: Continued healing of a distal radial fracture post-ORIF. Continued healing of an ulnar styloid fracture. Osteopenia. Electronically signed by: Chandler Bernardo MD 04/17/2025 03:07 PM EDT
== END 2025-04-17 14:14 | disposition home or self-care (01) ==
LOC: HO.HOSX 14:13
PROVIDERS: PCP Family Medicine
DX: S52.532A Colles' fracture of left radius, initial encounter for closed fracture (principal); S52.615A Nondisplaced fracture of left ulna styloid process, initial encounter for closed fracture; M25.632 Stiffness of left wrist, not elsewhere classified; X58.XXXA Exposure to other specified factors, initial encounter
CPT/HCPCS: 73110

== ENCOUNTER 2025-04-17 14:13 | Outpatient (AMB) | payer OTHER, SELFPAY ==
--- NOTE | 2025-04-17 14:31 | MHC.OFFVIS ---
Vital Signs 04/17/25 14:35 Height 5 ft Weight 150 lb BMI 29.3 Intake Visit Reasons: OV: LT distal radius ORIF 12/14/24 AR ROM/strength Intake Note: Myra is a 65 year old right hand dominant female who presents today for follow up status post Left Distal Radius ORIF, DOS: 12/14/[address] Archuleta. At her last visit, she was advised to only wear the Velcro wrist splint with high-risk daytime activities. A work note was provided to requesting accommodations for remote work until follow up. At today's visit she states that her left thumb and index finger have a stiff feeling. 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 Allergies sulfamethoxazole (From Bactrim) Allergy (Mild, Verified 04/17/25 14:34) Rash trimethoprim (From Bactrim) Allergy (Mild, Verified 04/17/25 14:34) Rash niacin (NIACIN) Allergy (Unknown, Verified 04/17/25 14:34) FLUSH HPI HPI OV: LT distal radius ORIF 12/14/24 AR ROM/strength: Details: Myra is a 65 year old right hand dominant female who presents today for follow up status post Left Distal Radius ORIF, DOS: 12/14/[address] Archuleta. At her last visit, she was advised to only wear the Velcro wrist splint with high-risk daytime activities. A work note was provided to requesting accommodations for remote work until follow up. At today's visit she states that her left thumb and index finger have a stiff feeling. 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 Overall, the patient reports that she experiences minimal if any pain in the left wrist. COUNT INCLUDES THE [facility] Medical History Distal radius fracture, left (~11/30/24) Fracture of ulnar styloid (~11/30/24) Cough Rash HIV (human immunodeficiency virus infection) Surgical History History of open reduction and internal fixation (ORIF) procedure No pertinent past surgical history Family History Paternal Grandmother Liver cancer Maternal Grandfather Bone cancer Maternal Grandmother Breast cancer Maternal Aunt Breast cancer Social History Household Members: None Housing: Condominium Are you a primary hospice care sales consultant to a significant other at home: No Do you presently have visiting nurse or other home services: No Patient Tobacco Use Status: Never used Tobacco Second Hand Smoke Exposure: No service: No Current occupational status: employed Current occupation: works at [employer] Review of Systems Const All systems reviewed & are unremarkable except as noted in HPI and below Physical Exam Vital Signs: BMI result Body Mass Index 29.3 Extrem Other: Left wrist incision site is clean dry and intact. No surrounding erythema or drainage. No signs of infection. No significant stiffness with attempting any range of motion of the wrist. Patient is able to make a closed fist. Supination of the left wrist now full and intact. She is able to demonstrate full finger extension, abduction, adduction, finger cross, okay sign and thumbs-up with minimal difficulty. Sensation is intact. Cap refill is brisk. Assessment & Plan Assessment & Plan (1) Stiffness of left wrist joint: Code(s): M25.632 - Stiffness of left wrist, not elsewhere classified Category: Medical (2) Distal radius fracture, left: Onset Date: ~11/30/24 Code(s): S52.502A - Unspecified fracture of the lower end of left radius, initial encounter for closed fracture Category: Medical Qualifiers: Encounter type: initial encounter Fracture morphology: Colles' Fracture type: closed Qualified Code(s): S52.532A - Colles' fracture of left radius, initial encounter for closed fracture (3) Fracture of ulnar styloid: Onset Date: ~11/30/24 Code(s): S52.613A - Displaced fracture of unspecified ulna styloid process, initial encounter for closed fracture Category: Medical Qualifiers: Encounter type: initial encounter Fracture alignment: nondisplaced Fracture type: closed Laterality: left Qualified Code(s): S52.615A - Nondisplaced fracture of left ulna styloid process, initial encounter for closed fracture Plan Ms. Tamayo is a 64-year-old right-hand dominant female who presents to the office today status post left distal radius ORIF performed on 12/14/[address] Archuleta. Patient reports that she is feeling quite well at this time, and has improved significantly. At this time, I feel the patient is healing quite well, and can readily progressed through the healing process of the wrist from her fracture. The cast was removed all the office today for repeat x-rays to be obtained. Patient was advised to only wear the Velcro wrist splint with high-risk daytime activities at this time. Patient is once again referred to OT for stiffness of the left wrist, in hopes of returning range of motion. Patient may slowly increase the amount that she is lifting to approximately 5-10 lb over the next 4 weeks, and slowly increasing to full normal lifting Patient has been provided with a note to intake worker for a further 3 weeks, and can return to her normal work duties at that time. Follow-up as needed. Orders: Orders XR wrist LT min 3V 04/17/25 M25.532 - Pain in left wrist OT Evaluation and Treatment 04/17/25 M25.632 - Stiffness of left wrist, not elsewhere classified Coding Level of Care Code Est Pt Level 3 (76400) Diagnoses Stiffness of left wrist joint M25.632 Distal radius fracture, left S52.532A Encounter type: initial encounter Fracture morphology: Colles' Fracture type: closed Fracture of ulnar styloid S52.615A Encounter type: initial encounter Fracture alignment: nondisplaced Fracture type: closed Laterality: left
[2025-04-17 14:35] VITALS: BMI 29.3
--- OUTSIDE RECORDS SUMMARY | 2025-04-17 16:47 | XMS_ITS | Clinical Summary ---
Author Organization [facility] it Address [address] [place] [address] Care Team Providers Care Company Laborer Name Role Phone Antonia Vela MD Primary Care Provider [phone] Allergies No known active allergies Medications traZODone [...] Hypertension/CHF/CAD Annual BMP Blood Test 02/18/2023 02/18/2022 Depression Screening 08/09/2024 COVID-19 Vaccine ( - season) 2025 12/18/2020, 11/27/2020 Influenza Vaccine (#1) 2025 , [...] Test (02/18/2022) Annual BMP Blood Test abstracted [facility] Provider [facility] Final Result * Cervical Cancer Screening: HPV (01/09/2021) [facility] Cervical Cancer Screening: HPV abstracted, negative [facility] Provider [facility] Final Result * Lipid panel (10/22/2020) [facility] LDL/HDL Ratio 0 Comment:abstracted, no inter pretation Triglycerides 0 mg/dL Comment:abstracted, no inter pretation Cholesterol 0 mg/dL Comment:abstracted, no inter pretation HDL 0 mg/dL Comment:abstracted, no inter pretation LDL Cholesterol 0 mg/dL Comment:abstracted, no inter pretation Blood Venous blood specimen / Unknown [facility] Provider LAB BLOOD ORDERABLES Karely [...] interpretation Anatomical Region Laterality Modality Other Result [facility] Historical Provider HEALTH MAINTENANCE Final Result * Hepatitis C Screening (05/26/2013) Hepatitis C Screening abstracted Historical Provider HEALTH MAINTENANCE Final Result from Last 3 Months or Most Recently Relevant to Health Maintenance Care Teams Company Laborer Relationship Specialty Start Date End Date Antonia Vela MD [address] [place] [address] PCP - General 12/06/01
== END 2025-04-17 15:01 | disposition home or self-care (01) ==
LOC: HO.HOS 14:13
PROVIDERS: PCP Family Medicine
DX: M25.632 Stiffness of left wrist, not elsewhere classified (principal); S52.532A Colles' fracture of left radius, initial encounter for closed fracture; S52.615A Nondisplaced fracture of left ulna styloid process, initial encounter for closed fracture
CPT/HCPCS: 99213

== ENCOUNTER → 2025-04-17 14:47 | Outpatient (BNV) | payer OTHER, SELFPAY | PROVIDERS: PCP Family Medicine; Visit Provider Radiology Diagnostic Radiology | DX: S52.612D Displaced fracture of left ulna styloid process, subsequent encounter for closed fracture with routine healing (principal) | CPT/HCPCS: 73110 ==

== ENCOUNTER 2025-05-25 09:43 | Outpatient (REF) | payer OTHER, SELFPAY ==
--- OUTSIDE RECORDS SUMMARY | 2025-05-25 11:11 | XMS_ITS | Clinical Summary ---
Author Organization [facility] Address [address] [place] [address] Care Team Providers Care Weapons Engineer Name Role Phone Charisse Lawton RN Unavailable Unavailable Nikki Lopez Primary Care Provider [phone] Medications dolutegravir-la mivudine (Dovato) 50-300 mg tabletIndicatio ns:HIV infection Take 50 mg by mouth 1 (one) time each day Active clonazePAM (KlonoPIN) 0.5 mg tablet Take 0.5 mg by mouth 2 (two) times a day if needed for anxiety Active sertraline (ZOLOFT) 100 mg tablet Take 100 mg by mouth 1 (one) time each day Active traZODone (DESYREL) 100 mg tablet Take 100 mg by mouth every night Active Encounters Date Type Department Care Team Description 05/18/2025 11:00 AM EDT Health Coaching Visit [facility] [address] [phone] Charisse Lawton RN from Last 3 Months Social History Tobacco Use Types Packs/Day Years Used Date Smoking Tobacco: Never Assessed Comments Unknown Sex and Gender Information Value Date Recorded Sex Assigned at Female 05/18/2025 8:41 AM [facility] Legal Sex Female 12:03 PM [facility] Gender Identity Not on file Sexual Orientation Not on file Last Filed Vital Signs Vital Sign Reading Time Taken Comments Blood Pressure - - Pulse - - Temperature - - Respiratory Rate - - Oxygen Saturation - - Inhaled Oxygen Concentration - - Weight 71.7 kg (158 lb) 05/18/2025 11:43 AM EDT Height 154.9 cm (5' 1 ) 05/18/2025 11:43 AM EDT Body Mass Index 29.85 05/18/2025 11:43 AM EDT Plan of Treatment Upcoming Encounters Date Type Department Care Team (Late st Contact Info) Description 06/22/2025 9:00 AM EST Health Coaching Visit [facility] [address] [place] [phone] Charisse Lawton RN Health Maintenance Due Date Last Done Comments CT Colonography 1961 Cologuard 1961 Colonoscopy 1961 Colorectal Cancer Screening 1961 FOBT/FIT 1961 Hepatitis C Screening 1961 Sigmoidoscopy 1961 PHQ-9 Depression Screen 1973 Annual Preventive Exam 1979 PASQUALE-7 Anxiety Screen 1979 Cervical Cancer Screening (Pap/HPV) 1982 Mammogram 2001 Pneumococcal Vaccine: 50+ Ye ars (1 of 1 - PCV) 2011 Zoster Vaccines (1 of 2) 2011 DTaP,Tdap,and Td Vaccines (2 - Td or Tdap) 05/18/2022 05/18/2012, 05/09/2006 COVID-19 Vaccine (1 - 2023-2 5 season) 2025 Influenza Vaccine (#1) 2025 , 05/08/2013, 05/10/2012, Additional history exists RSV Vaccine (SCDM) (1 - 1-do se 75+ series) 2036 Goals Goal Patient Goal Type Associated Problems Recent Progress Patient-Stated? Author Provide and review Metabolic Syndrome specific workbook (delete if not applicable) Care Plan Wellness Specific Goals No Charisse Lawton RN Set initial healthcare provider visit Care Plan Wellness Specific Goals No Charisse Lawton RN Take actions to address health maintenance gaps Care Plan Wellness Specific Goals No Charisse Lawton RN Increase physical activity Care Plan Physical Activity No Charisse Lawton RN Exercise X minutes on X days per week Care Plan Physical Activity No Charisse Lawton RN Improve balance, strength or endurance Care Plan Physical Activity No Charisse Lawton RN Start of Coaching Healthy Eating Survey: Generate baseline customer score Care Plan Healthy Eating No Charisse Lawton RN End of Coaching Healthy Eating Survey: Generate customer endpoint score Care Plan Healthy Eating No Charisse Lawton RN Eat less salt Care Plan Healthy Eating Charisse Holcomb RN Eat less fast food Care Plan Healthy Eating Charisse Holcomb RN Cut out extra servings at meals Care Plan Healthy Eating Charisse Holcomb RN Drink less soda, juice, and other sugary beverages Care Plan Healthy Eating Charisse Holcomb RN Eat fewer sweets and sugary snacks Care Plan Healthy Eating Charisse Holcomb RN Decrease/monitor simple carbohydrate intake Care Plan Healthy Eating Charisse Holcomb RN Follow the DASH diet Care Plan Healthy Eating Charisse Holcomb RN Improve meal consistency Care Plan Healthy Eating Charisse Holcomb RN Note: Motivation (Select one of these): Motivation medium Confidence medium - Will plan to increase her water to at least 64 ounces per day and add oatmeal, eggs or yogurt and fruit for breakfast. Will plan to get the salad bar with chicken at least once a week. Plan meals in advance Care Plan Healthy Eating Charisse Holcomb RN Learn how to prepare healthy meals at home Care Plan Healthy Eating Charisse Holcomb RN Eat more fruits and vegetables Care Plan Healthy Eating Charisse Holcomb RN Start of Coaching HRQOL: Generate baseline customer score Care Plan Behavioral Health Charisse Holcomb RN End of Coaching HRQOL: Generate endpoint customer score Care Plan Behavioral Health Charisse Holcomb RN Start of Coaching Stress Assessment (Standard): Generate baseline customer score Care Plan Behavioral Health Charisse Holcomb RN End of Coaching Stress Assessment (Standard): Generate endpoint customer score Care Plan Behavioral Health Charisse Holcomb RN Improve your coping skills Care Plan Behavioral Health Charisse Holcomb RN Improve problem solving skills Care Plan Behavioral Health Charisse Holcomb RN Improve organizational/tip e management skills Care Plan Behavioral Health Charisse Holcomb RN Develop/expand support system Care Plan Behavioral Health Charisse Holcomb RN Maintain relationships Care Plan Behavioral Health Charisse Holcomb RN Decrease Alcohol Use Care Plan Behavioral Health Charisse Holcomb RN Decrease Drug Use Care Plan Behavioral Health Charisse Holcomb RN Investigate stress management techniques Care Plan Behavioral Health Charisse Holcomb RN Reduce job or personal stress through self management Care Plan Behavioral Health No Charisse Lawton RN Patient will identify 3 triggers of depression Care Plan Behavioral Health No Charisse Lawton RN Patient will better manage their depression Care Plan Behavioral Health No Charisse Lawton RN Decrease signs and symptoms of depression Care Plan Behavioral Health No Charisse Lawton RN Reduce overall tension and anxiety Care Plan Behavioral Health No Charisse Lawton RN Client will be able to identify emotional and physiological signs of anxiety Care Plan Behavioral Health No Charisse Lawton RN Learn and implement coping skills to increase tolerance to anxiety Care Plan Behavioral Health No Charisse Lawton RN Consistently take Medications as Prescribed Care Plan Medications No Charisse Lawton RN Healthy Weight management Care Plan Weight No Charisse Lawton RN Improve Sleep Habits Care Plan Sleep No Charisse Lawton RN Quit using tobacco (cigarettes, smokeless, etc) Care Plan Tobacco No Charisse Lawton RN Reduce tobacco use (cigarettes, smokeless, etc) Care Plan Tobacco No Charisse Lawton RN Work with tobacco cessation program Care Plan Tobacco No Charisse Lawton RN Provide and Review condition specific workbook Care Plan Tobacco No Charisse Lawton RN Provide and Review condition specific workbook Care Plan Depression Specific Goals No Charisse Lawton RN PHQ2 Score of <3 or PHQ9 Score of <14 Care Plan Depression Specific Goals No Charisse Lawton RN OR Confirm that customer has HCP visit scheduled for follow-up Care Plan Depression Specific Goals Charisse Holcomb RN Set initial healthcare provider visit Care Plan Physician Healthcare Visits Charisse Holcomb RN Treatment Plan: Improve adherence Care Plan Physician Healthcare Visits Charisse Hoclomb RN Start of Coaching HRQOL: Generate baseline customer score Care Plan Behavioral Health Charisse Holcomb RN End of Coaching HRQOL: Generate endpoint customer score Care Plan Behavioral Health No Charisse Lawton RN Start of Coaching Stress Assessment (Standard): Generate baseline customer score Care Plan Behavioral Health Charisse Holcomb RN End of Coaching Stress Assessment (Standard): Generate endpoint customer score Care Plan Behavioral Health No Charisse Lawton RN Improve your coping skills Care Plan Behavioral Health No Charisse Lawton RN Improve problem solving skills Care Plan Behavioral Health Charisse Holcomb RN Improve organizational/tip e management skills Care Plan Behavioral Health Charisse Holcomb RN Develop/expand support system Care Plan Behavioral Health Charisse Holcomb RN Maintain relationships Care Plan Behavioral Health Charisse Holcomb RN Decrease Alcohol Use Care Plan Behavioral Health Charisse Holcomb RN Decrease Drug Use Care Plan Behavioral Health Charisse Holcomb RN Investigate stress management techniques Care Plan Behavioral Health Charisse Holcomb RN Reduce job or personal stress through self management Care Plan Behavioral Health Charisse Holcomb RN Patient will identify 3 triggers of depression Care Plan Behavioral Health Charisse Holcomb RN Patient will better manage their depression Care Plan Behavioral Health Charisse Holcomb RN Decrease signs and symptoms of depression Care Plan Behavioral Health Charisse Holcomb RN Reduce overall tension and anxiety Care Plan Behavioral Health Charisse Holcomb RN Client will be able to identify emotional and physiological signs of anxiety Care Plan Behavioral Health Charisse Holcomb RN Learn and implement coping skills to increase tolerance to anxiety Care Plan Behavioral Health Charisse Holcomb RN Take actions to address health maintenance gaps Care Plan Prevention Charisse Holcomb RN Improve knowledge/understa nding of condition(s) Care Plan Prevention Charisse Holcomb RN Increase awareness/understa nding of conditions(s) triggers Care Plan Prevention Charisse Holcomb RN Create relapse prevention/symptom action plan Care Plan Prevention Charisse Holcomb RN Additional Health Concerns Active Problems Noted Date Diagnosed Date Wellness Specific Goals 05/18/2025 Physical Activity 05/18/2025 Healthy Eating 05/18/2025 Behavioral Health 05/18/2025 Medications 05/18/2025 Weight 05/18/2025 Sleep 05/18/2025 Tobacco 05/18/2025 Depression Specific Goals 05/18/2025 Physician Healthcare Visits 05/18/2025 Behavioral Health 05/18/2025 Prevention 05/18/2025 Care Teams Weapons Engineer Relationship Specialty Start Date End Date Nikki Lopez [address] [place] [id number] PCP - General 05/18/25 Charisse Lawton RN Health Mail Carrier Registered Nurse 05/03/25
--- OUTSIDE RECORDS SUMMARY | 2025-05-25 11:11 | XMS_ITS ---
Care Plan Created on: May 25, 2025 BelkisSanjuana greenne : 1960 Sex: Female Author Organization [facility] Address [address] [place] [address] Care Team Providers Care Director Revenue Name Role Phone Charisse Lawton RN Unavailable Unavailable Nikki Lopez Primary Care Provider [phone] Additional Health Concerns Active Problems Noted Date Diagnosed Date Wellness Specific Goals 05/18/2025 Physical Activity 05/18/2025 Healthy Eating 05/18/2025 Behavioral Health 05/18/2025 Medications 05/18/2025 Weight 05/18/2025 Sleep 05/18/2025 Tobacco 05/18/2025 Depression Specific Goals 05/18/2025 Physician Healthcare Visits 05/18/2025 Behavioral Health 05/18/2025 Prevention 05/18/2025 Goals Goal Patient Goal Type Associated Problems [...] Eat less salt Care Plan Healthy Eating No Charisse Lawton RN Eat less fast food Care Plan Healthy Eating No Charisse Lawton RN Cut out extra servings at meals Care Plan Healthy Eating No Charisse Lawton RN Drink less soda, juice, and other sugary beverages Care Plan Healthy Eating No Charisse Lawton RN Eat fewer sweets and sugary snacks [...] Care Plan Behavioral Health Charisse Holcomb RN Consistently take Medications as Prescribed Care Plan Medications Charisse Holcomb RN Healthy Weight management Care Plan Weight [...] Review condition specific workbook Care Plan Tobacco Charisse Holcomb RN Provide and Review condition specific workbook Care Plan Depression Specific Goals Charisse Holcomb RN PHQ2 Score of <3 or PHQ9 Score of <14 Care Plan Depression Specific Goals No Charisse Lawton RN OR Confirm that customer has HCP visit scheduled for follow-up Care Plan Depression Specific Goals Charisse Holcomb RN Set initial healthcare provider visit Care Plan Physician Healthcare Visits Charisse Holcomb RN Treatment Plan: Improve adherence Care Plan Physician Healthcare Visits Charisse Holcomb RN Start of Coaching HRQOL: [...] stress management techniques Care Plan Behavioral Health No Jered, Charisse, RN Reduce job or personal stress through [...] plan Care Plan Prevention Charisse Holcomb RN Interventions Care Plan Interventions Intervention Entry Date Outcome (Patient) I will use reminder tools such as a pill box or medication log to help me keep track of what medications to take each day. 05/18/2025 (Patient) I will ensure that I have sufficient amounts of all of my medications. 05/18/2025 (Patient) I will be able to state that I understand how to I am supposed to take my medications. 05/18/2025 (Patient) I will be able to say what my medications are at the next review. 05/18/2025 Medication education 05/18/2025 Related Goals and Interventions Goal Associated Intervent ions Consistently take Medication s as Prescribed (Patient) I will use reminder tools such as a pill box or medication log to help me keep track of what medications to take each day.; (Patient) I will ensure that I have sufficient amounts of all of my medications.; (Patient) I will be able to state that I understand how to I am supposed to take my medications.; (Patient) I will be able to say what my medications are at the next review.; Medication education
--- OUTSIDE RECORDS SUMMARY | 2025-05-25 11:11 | XMS_ITS | Clinical Summary ---
Author Organization [facility] it Address [address] [place] [address] Care Team Providers Care Document Management Specialist Name Role Phone Antonia Vela MD Primary Care Provider [phone] Allergies No known active allergies Medications traZODone [...] medical problems 08/03/2005 Overview (07/27/2024): DERMATOFIBROMAS Immunizations Immunization Administration Dates Next Due Influenza trivalent, with [...] Test (02/18/2022) Annual BMP Blood Test abstracted [facility] Provider [facility] Final Result * Cervical Cancer Screening: HPV (01/09/2021) [facility] Cervical Cancer Screening: HPV abstracted, negative [facility] Provider [facility] Final Result * Lipid panel (10/22/2020) [facility] LDL/HDL Ratio 0 Comment:abstracted, no inter pretation Triglycerides 0 mg/dL Comment:abstracted, no inter pretation Cholesterol 0 mg/dL Comment:abstracted, no inter pretation HDL 0 mg/dL Comment:abstracted, no inter pretation LDL Cholesterol 0 mg/dL Comment:abstracted, no inter pretation Blood Venous blood specimen / Unknown [facility] Provider LAB BLOOD ORDERABLES Karely [...] interpretation Anatomical Region Laterality Modality Other Result [facility] Historical Provider HEALTH MAINTENANCE Final Result * Hepatitis C Screening (05/26/2013) Hepatitis C Screening abstracted Historical Provider HEALTH MAINTENANCE Final Result from Last 3 Months or Most Recently Relevant to Health Maintenance Care Teams Document Management Specialist Relationship Specialty Start Date End Date Antonia Vela MD [address] [place] [address] PCP - General 12/06/01
[2025-05-25 17:09] LABS: Anion Gap 12 (12-20); Blood Urea Nitrogen 22 mg/dL (9-16); Calcium 9.1 mg/dL (8.4-10.2); Carbon Dioxide 29 mmol/L (22-29); Chloride 104 mmol/L (96-108); Cholesterol 258 mg/dL (<200); Estimated Glomerular Filt Rate > 60; HDL Cholesterol 62 mg/dL (>40); Potassium 3.8 mmol/L (3.3-5.1); Sodium 141 mmol/L (135-145); Triglycerides 127 mg/dL (<150)
[2025-05-28 20:02] LABS: HIV RNA PCR Qn Copies 44 copies/mL (NOT DETECTED); HIV RNA PCR Qn Log Copies 1.64 (NOT DETECTED)
== END 2025-05-25 09:44 | disposition home or self-care (01) ==
LOC: HO.CHCLDS 09:43
PROVIDERS: Internal Medicine; Visit Provider Family Medicine
DX: E66.811 Obesity, class 1 (principal); E66.09 Other obesity due to excess calories; Z68.30 Body mass index [BMI] 30.0-30.9, adult; M81.0 Age-related osteoporosis without current pathological fracture; Z21 Asymptomatic human immunodeficiency virus [HIV] infection status
CPT/HCPCS: 36415; 80048; 80061; 82306; 87536

== ENCOUNTER 2025-06-14 18:31 | Outpatient (REF) | payer OTHER, SELFPAY ==
--- OUTSIDE RECORDS SUMMARY | 2025-06-14 18:55 | XMS_ITS | Clinical Summary ---
Author Organization [facility] Address [address] [place] [address] Care Team Providers Care Cloth Worker Name Role Phone Charisse Lawton RN Unavailable Unavailable Nikki Lopez Primary Care Provider [phone] Medications dolutegravir-la mivudine (Dovato) 50-300 mg tabletIndicatio [...] 05/18/2025 11:00 AM EDT Health Coaching Visit [facility] [employer] [facility] [address] [phone] Charisse Lawton RN from Last 3 Months Social History Tobacco Use Types Packs/Day Years Used Date Smoking Tobacco: Never Assessed Comments Unknown Sex and Gender Information Value Date Recorded Sex Assigned at Female 05/18/2025 8:41 AM [facility] Legal Sex Female 12:03 PM [facility] Gender Identity Not on file Sexual [...] 06/22/2025 9:00 AM EST Health Coaching Visit [facility] [employer] [facility] [employer] [address] [address] Charisse Lawton RN Health Maintenance Due Date Last Done Comments CT Colonography 1961 Cologuard 1961 Colonoscopy 1961 Colorectal Cancer Screening 1961 FOBT/FIT 1961 Hepatitis C Screening 1961 Sigmoidoscopy 1961 MMR Vaccines (1 of 1 - Standard series) 1962 PHQ-9 Depression Screen 1973 Annual Preventive Exam 1979 PASQUALE-7 Anxiety Screen 1979 Cervical Cancer Screening (Pap/HPV) 1982 Mammogram 2001 Pneumococcal Vaccine: 50+ Years (1 of 1 - PCV) 2011 Zoster Vaccines (1 of 2) 2011 DTaP,Tdap,and Td Vaccines (2 - Td or Tdap) 05/18/2022 05/18/2012, 05/09/2006 COVID-19 Vaccine (1 - season) 2025 Influenza Vaccine (#1) 2025 , 05/08/2013, 05/10/2012, Additional history exists RSV Vaccine (SCDM) (1 - 1-dose 75+ series) 2036 Hepatitis B Vaccines Aged Out No long er eligible based on patient's age to complete this topic Goals Goal Patient Goal Type Associated Problems [...] score Care Plan Healthy Eating No Charisse Lawton, RN End of Coaching Healthy Eating Survey: Generate customer endpoint score Care Plan Healthy Eating Charisse Holcomb RN Eat less salt Care Plan Healthy [...] RN Healthy Weight management Care Plan Weight Charisse Holcomb RN Improve Sleep Habits Care Plan Sleep No Charisse Lawton RN Quit using tobacco (cigarettes, smokeless, etc) Care Plan Tobacco Charisse Holcomb RN Reduce tobacco use (cigarettes, smokeless, etc) Care Plan Tobacco Charisse Holcomb RN Work with tobacco cessation program Care Plan Tobacco Charisse Holcomb RN Provide and Review condition specific workbook Care Plan Tobacco Charisse Holcomb RN Provide and Review condition specific workbook Care Plan Depression Specific Goals Charisse Holcomb RN PHQ2 Score of <3 or PHQ9 Score of <14 Care Plan Depression Specific Goals Charisse Holcomb RN OR Confirm that customer has HCP [...] knowledge/understa nding of condition(s) Care Plan Prevention No Charisse Lawton RN Increase awareness/understa nding of conditions(s) triggers Care Plan Prevention No Charisse Latwon RN Create relapse prevention/symptom action plan Care Plan Prevention No Charisse Lawton RN Additional Health Concerns Active Problems Noted Date Diagnosed Date Wellness Specific Goals 05/18/2025 Physical Activity 05/18/2025 Healthy Eating 05/18/2025 Behavioral Health 05/18/2025 Medications 05/18/2025 Weight 05/18/2025 Sleep 05/18/2025 Tobacco 05/18/2025 Depression Specific Goals 05/18/2025 Physician Healthcare Visits 05/18/2025 Behavioral Health 05/18/2025 Prevention 05/18/2025 Care Teams Cloth Worker Relationship Specialty Start Date End Date Nikki Lopez [address] [place] [id number] PCP - General 05/18/25 Charisse Lawton, RN Health [employer] Registered Nurse 05/03/25
--- OUTSIDE RECORDS SUMMARY | 2025-06-14 18:55 | XMS_ITS ---
Care Plan Created on: June 14, 2025 BelkisSanjuana greenne : 1960 Sex: Female Author Organization [facility] Address [address] [place] [address] Care Team Providers Care Rda Name Role Phone Charisse Lawton RN Unavailable Unavailable Nikki Lopez Primary Care Provider [phone] Additional Health Concerns Active Problems Noted Date [...] through self management Care Plan Behavioral Health Chairsse Holcomb RN Patient will identify 3 triggers [...]
--- OUTSIDE RECORDS SUMMARY | 2025-06-14 18:55 | XMS_ITS | Clinical Summary ---
Author Organization [facility] it Address [address] [place] [address] Care Team Providers Care Approver Name Role Phone Antonia Vela MD Primary Care Provider Allergies No known active allergies Medications traZODone [...] Test (02/18/2022) Annual BMP Blood Test abstracted [facility] Provider [facility] Final Result * Cervical Cancer Screening: HPV (01/09/2021) [facility] Cervical Cancer Screening: HPV abstracted, negative [facility] Provider [facility] Final Result * Lipid panel (10/22/2020) [facility] LDL/HDL Ratio 0 Comment:abstracted, no inter pretation Triglycerides 0 mg/dL Comment:abstracted, no inter pretation Cholesterol 0 mg/dL Comment:abstracted, no inter pretation HDL 0 mg/dL Comment:abstracted, no inter pretation LDL Cholesterol 0 mg/dL Comment:abstracted, no inter pretation Blood Venous blood specimen / Unknown [facility] Provider LAB BLOOD ORDERABLES Karely l [...] interpretation Anatomical Region Laterality Modality Other Result [facility] Historical Provider HEALTH MAINTENANCE Final Result * Hepatitis C Screening (05/26/2013) Hepatitis C Screening abstracted Historical Provider HEALTH MAINTENANCE Final Result from Last 3 Months or Most Recently Relevant to Health Maintenance Care Teams Approver Relationship Specialty Start Date End Date Antonia Vela MD [address] [place] [phone] PCP - General 12/06/01
[2025-06-22 17:19] LABS: HPV MRNA E6/E7 Rectal NOT DETECTED
== END 2025-06-14 18:32 | disposition home or self-care (01) ==
LOC: HO.LNP 18:31
PROVIDERS: Visit Provider Family Medicine
DX: Z08 Encounter for follow-up examination after completed treatment for malignant neoplasm (principal); Z85.048 Personal history of other malignant neoplasm of rectum, rectosigmoid junction, and anus; Z11.51 Encounter for screening for human papillomavirus (HPV)
CPT/HCPCS: 87624; 87626; 88112; 88175

== ENCOUNTER 2025-08-06 13:21 | Outpatient (AMB) | payer OTHER, SELFPAY ==
--- NOTE | 2025-08-06 13:22 | A.OFFVIS_ITS ---
Vital Signs 08/06/25 13:27 Height 5 ft Weight 150 lb BMI 29.3 Intake Visit Reasons: Newprob-Trigger ring finger, right hand Intake Note: Myra is a 65 year old right hand dominant female who presents today for a New Problem Visit for evaluation of Right Ring Finger Locking & Catching. Status post Left Distal Radius ORIF, DOS: 12/14/[address] Archuleta. At today's visit she states that since December of this year she has had multiple incidents where her right ring finger was locking and catching. Patient reports that one of the medication she was placed on caused the right hand to stiffen up and she stopped the medication per her PCP. Patient states that she would like to discuss cortisone injections for her right ring finger at today's visit. Allergies sulfamethoxazole (From Bactrim) Allergy (Mild, Verified 04/17/25 14:34) Rash trimethoprim (From Bactrim) Allergy (Mild, Verified 04/17/25 14:34) Rash niacin (NIACIN) Allergy (Unknown, Verified 04/17/25 14:34) FLUSH HPI HPI Newprob-Trigger ring finger, right hand: Details: Myra is a 65 year old right hand dominant female who presents today for a New Problem Visit for evaluation of Right Ring Finger Locking & Catching. Status post Left Distal Radius ORIF, DOS: 12/14/[address] Archuleta. At today's visit she states that since December of this year she has had multiple incidents where her right ring finger was locking and catching. Patient reports that one of the medication she was placed on caused the right hand to stiffen up and she stopped the medication per her PCP. Patient states that she would like to discuss cortisone injections for her right ring finger at today's visit. Patient denies any history of diabetes. No other acute complaints or concerns at this time. [facility] Medical History Distal radius fracture, left (~11/30/24) Fracture of ulnar styloid (~11/30/24) Cough Rash HIV (human immunodeficiency virus infection) Surgical History History of open reduction and internal fixation (ORIF) procedure No pertinent past surgical history Family History Paternal Grandmother Liver cancer Maternal Grandfather Bone cancer Maternal Grandmother Breast cancer Maternal Aunt Breast cancer Social History Household Members: None Housing: Condominium Are you a primary healthcare market consultant to a significant other at home: No Do you presently have visiting nurse or other home services: No Patient Tobacco Use Status: Never used Tobacco Second Hand Smoke Exposure: No service: No Current occupational status: employed Current occupation: works at [employer] Review of Systems Const All systems reviewed & are unremarkable except as noted in HPI and below Physical Exam Vital Signs: BMI result Body Mass Index 29.3 Extrem Other: Patient is alert, oriented, and in no acute distress. Neuro: Normal sensation of the tips of all digits of the right hand at this time Vascular: Cap refill brisk Pain: Tenderness to palpation of the A1 olman of right ring finger Pain with locking and catching of right ring finger ROM: There is visible and palpable locking and catching of the right ring finger in a flexed position Patient was able to flex and extend all other digits of the right hand fully and without difficulty Skin: No lacerations or abrasions. General: No ecchymosis, erythema, or evidence of infection. Psych: Appears grossly normal Affect normal Attitude cooperative Office Procedures AMB Tendon Injection Tendon Injection [id number] Tendon Sheath Injection All charges added?: Procedure code (CPT) selection complete Assessment & Plan Assessment & Plan (1) Trigger finger, right ring finger: Code(s): M65.341 - Trigger finger, right ring finger Category: Medical Plan 1. Right ring finger trigger finger The risks and benefits of a steroid injection including but not limited to risk of damage to blood vessels, nerves, tendons, infection, skin bleaching, failure to improve symptoms, increased pain, and possible need for further injections or other intervention were discussed with the patient and the patient wishes to proceed with the steroid injection. Once consent was obtained, I sterilely prepped the area over the A1 olman of the flexor tendon sheath of the right ring finger. I then injected the flexor tendon sheath with a combination of 1 mL of dexamethasone (4mg/ml), and 1% lidocaine. The patient tolerated the procedure well with no complications. If the patient continues to have locking and catching 4-6 weeks following this injection, they may call to schedule appointment to discuss alternative treatment options Follow-up prn Coding Level of Care Code Est Pt Level 3 (99711) Diagnoses Trigger finger, right ring finger M65.341 CPT Codes Tendon Injection - Tendon Injection 1: [id number] Tendon Sheath Injection ([id number])
[2025-08-06 13:27] VITALS: BMI 29.3
--- OUTSIDE RECORDS SUMMARY | 2025-08-06 15:25 | XMS_ITS ---
Care Plan Created on: August 06, 2025 Myra Tamayo : 1960 Sex: Female Author Organization [facility] Address [address] [place] [address] Care Team Providers Care Public Defender Name Role Phone Charisse Lawton RN Unavailable Unavailable Nikki Lopez Primary Care Provider [phone] Additional Health Concerns Active Problems Noted Date [...] salt Care Plan Healthy Eating No Charisse Lawtno RN Eat less fast food Care Plan Healthy Eating No Charisse Lawton RN Cut out extra servings at meals Care Plan Healthy Eating On track( 025 9:40 AM EST) No Charisse Lawton RN Note: Motivation (Select one of these): Motivation medium Confidence medium - Will try the eggs in the office instead of yogurt Drink less soda, juice, and other sugary [...]
--- OUTSIDE RECORDS SUMMARY | 2025-08-06 15:25 | XMS_ITS | Clinical Summary ---
Author Organization [facility] it Address [address] [place] [address] Care Team Providers Care Forest Nursery Worker Name Role Phone Antonia Vela MD Primary Care Provider [phone] Allergies No known active allergies Medications traZODone [...] Problems Problem Noted Date Diagnosed Date Pancytopenia 02/05/2022 Adjustment disorder with mixed anxiety and depre [...] cancer Neg Hx Relation Name Status Comments [place] aunt Alive Father Alive Maternal Grandfather Maternal [...] Health Maintenance Due Date Last Done Comments Drug Screen 1960 Non-Opioid Controlled Substance Agreement 1960 Pneumococcal Vaccine: 50+ Years (1 of 1 [...] Results * Annual BMP Blood Test (02/18/2022) HM Annual BMP Blood Test abstracted [facility] Provider HEALTH MAINTENANCE Final Result * Cervical Cancer Screening: HPV (01/09/2021) [facility] Cervical Cancer Screening: HPV abstracted, negative Historical Provider HEALTH MAINTENANCE Final Result * Lipid panel (10/22/2020) [facility] LDL/HDL Ratio 0 Comment:abstracted, no inter pretation Triglycerides 0 mg/dL Comment:abstracted, no inter pretation Cholesterol 0 mg/dL Comment:abstracted, no inter pretation HDL 0 mg/dL Comment:abstracted, no inter pretation LDL Cholesterol 0 mg/dL Comment:abstracted, no inter pretation Blood Venous blood specimen / Unknown [facility] Provider LAB BLOOD ORDERABLES Karely l Result [...] interpretation Anatomical Region Laterality Modality Other Result [facility] Historical Provider HEALTH MAINTENANCE Final Result * Hepatitis C Screening (05/26/2013) Hepatitis C Screening abstracted Result [facility] Historical Provider HEALTH MAINTENANCE Final Result from Last 3 Months or Most Recently Relevant to Health Maintenance Care Teams Forest Nursery Worker Relationship Specialty Start Date End Date Antonia Vela MD [address] [place] [address] PCP - General 12/06/01
--- OUTSIDE RECORDS SUMMARY | 2025-08-06 15:25 | XMS_ITS | Clinical Summary ---
Author Organization [facility] Address [address] [place] [address] Care Team Providers Care Director Mortgage Name Role Phone Charisse Lawton RN Unavailable Unavailable Nikki Lopez Primary Care Provider [phone] Medications dolutegravir-la mivudine (Dovato) 50-300 mg tabletIndicatio [...] 100 mg by mouth every night Active semaglutide, weight loss, (Wegovy) 0.25 mg/0.5 mL pen injector Inject 0.25 mg under the skin every 7 (seven) days Active Encounters Date Type Department Care Team Description 06/22/2025 9:00 AM EST Health Coaching Visit [address] [address] Charisse Lawton RN 05/18/2025 11:00 AM EDT Health Coaching Visit [address] [address] Charisse Lawton RN from Last 3 Months Social History Tobacco Use Types Packs/Day Years Used Date Smoking Tobacco: Never Assessed Comments Unknown Sex and Gender Information Value Date Recorded Sex Assigned at Female 05/18/2025 8:41 AM MST Legal Sex Female 12:03 PM MST Gender Identity Not on file Sexual Orientation Not on file Last Filed Vital Signs Vital Sign Reading Time Taken Comments Blood Pressure - - Pulse - - Temperature - - Respiratory Rate - - Oxygen Saturation - - Inhaled Oxygen Concentration - - Weight 72.6 kg (160 lb) 06/22/2025 9:35 AM EST Height 154.9 cm (5' 1 ) 05/18/2025 11:43 AM EDT Body Mass Index 30.23 05/18/2025 11:43 AM EDT Plan of Treatment Upcoming Encounters Date Type Department Care Team (Late st Contact Info) Description 08/17/2025 9:00 AM EST Health Coaching Visit [employer] [address] [facility] [place] [address] [place] [address] Charisse Lawton, RN Health Maintenance Due Date Last Done [...] or Tdap) 05/18/2022 05/18/2012, 05/09/2006 COVID-19 Vaccine ( - season) 2025 Influenza Vaccine (#1) 2025 0, 05/08/2013, 05/10/2012, Additional history exists RSV Vaccine (SCDM) (1 - 1-dose 75+ series) 2036 Hepatitis B Vaccines Aged Out No long er eligible based on patient's age to complete this topic Goals Goal Patient Goal Type Associated Problems Recent Progress Patient-Stated? Author Provide and review Metabolic Syndrome specific workbook (delete if not applicable) Care Plan Wellness Specific Goals No Charisse Lawton, RN Set initial healthcare provider visit Care Plan Wellness Specific Goals No Charisse Lawton, RN Take actions to address health maintenance gaps Care Plan Wellness Specific Goals Charisse Holcomb RN Increase physical activity Care Plan Physical Activity Charisse Holcomb RN Exercise X minutes on X days per week Care Plan Physical Activity Charisse Holcomb RN Improve balance, strength or endurance Care Plan Physical Activity Charisse Holcomb RN Start of Coaching Healthy Eating Survey: Generate baseline customer score Care Plan Healthy Eating Charisse Holcomb RN End of Coaching Healthy Eating Survey: Generate customer endpoint score Care Plan Healthy Eating Charisse Holcomb RN Eat less salt Care Plan Healthy Eating Charisse Holcomb RN Eat less fast food Care Plan Healthy Eating Charisse Holcomb RN Cut out extra servings at meals Care Plan Healthy Eating On track( 025 9:40 AM EST) Charisse Holcomb RN Note: Motivation (Select one [...] (cigarettes, smokeless, etc) Care Plan Tobacco Charisse Hlocomb RN Reduce tobacco use (cigarettes, smokeless, etc) [...] problem solving skills Care Plan Behavioral Health No Charisse Lawton RN Improve organizational/tip e management skills Care [...] address health maintenance gaps Care Plan Prevention No Charisse Lawton RN Improve knowledge/understa nding of condition(s) Care Plan Prevention Cahrisse Holcomb RN Increase awareness/understa nding of conditions(s) [...] Visits 05/18/2025 Behavioral Health 05/18/2025 Prevention 05/18/2025 Insurance CIG Care Teams Director Mortgage Relationship Specialty Start Date End Date Nikki Lopez [address] [place] [address] PCP - General 05/18/25 Charisse Lawton, RN Health Night [address] Magistrate Registered Nurse 05/03/25
== END 2025-08-06 14:05 | disposition home or self-care (01) ==
LOC: HO.HOS 13:22
DX: M65.341 Trigger finger, right ring finger (principal)
CPT/HCPCS: 20550; 99213

== ENCOUNTER → 2025-08-06 13:21 | Outpatient (BNVA) | payer OTHER, SELFPAY | DX: M65.341 Trigger finger, right ring finger (principal) | CPT/HCPCS: 20550 ==